=== PATIENT | female | born 1995 | race Caucasian/White ===

== ENCOUNTER → 2017-04-11 08:06 | Outpatient (CLI) | payer BC, SELFPAY ==
--- NOTE | 2017-04-11 08:14 | US_ITS ---
US abdomen limited: INDICATION: Elevated liver enzymes ITS.REASON: ELEVATED ALAMINE AMINOTRANSFERASE LEVEL ORDERING PHYSICIAN: Zenaida Costa PATIENT AGE: 21 years COMPARISON: 05/08/2015 FINDINGS: PANCREAS: Poorly demonstrated. No obvious pancreatic mass or ductal dilatation. LIVER: No focal liver lesions demonstrated. Homogeneous echogenicity. No intrahepatic biliary ductal dilatation evident. Appropriate direction of blood flow within a nondilated portal vein RIGHT KIDNEY: Unremarkable. Normal size and echogenicity. No hydronephrosis GALLBLADDER: Status post cholecystectomy. No ductal dilatation IMPRESSION: Prior cholecystectomy otherwise negative right upper quadrant ultrasound
== END ==
PROVIDERS: Family Provider Family Medicine; PCP Nurse Practitioner Family; Visit Provider Nurse Practitioner Family
DX: R74.0 Nonspecific elevation of levels of transaminase and lactic acid dehydrogenase [LDH] (principal)
CPT/HCPCS: 76705

== ENCOUNTER → 2017-10-28 14:37 | Outpatient (CLI) | payer OTHER, BC, SELFPAY ==
[2017-10-28 19:04] LABS: HCG,Quantitative 323 mIU/mL
== END ==
PROVIDERS: PCP Nurse Practitioner Family; Visit Provider Nurse Practitioner Family
DX: Z3A.01 Less than 8 weeks gestation of pregnancy (principal)
CPT/HCPCS: 36415; 84702

== ENCOUNTER → 2017-12-05 16:26 | Outpatient (CLI) | payer OTHER, BC, SELFPAY ==
[2017-12-09 06:30] LABS: Neisseria gonorrhoeae, NAA Negative (Negative)
== END ==
PROVIDERS: Visit Provider Obstetrics & Gynecology
DX: Z34.90 Encounter for supervision of normal pregnancy, unspecified, unspecified trimester (principal)
CPT/HCPCS: 87491; 87591

== ENCOUNTER → 2017-12-15 07:15 | Outpatient (CLI) | payer OTHER, BC, SELFPAY ==
[2017-12-15 08:16] LABS: Basophils % 0.3 % (0.1-2.0); Eosinophils # 0.1 K/mm3 (0.0-0.4); Eosinophils % 0.8 % (0.1-12.0); Hemoglobin 13.5 g/dL (12.2-16.2); Lymphocytes # 2.5 K/mm3 (0.7-4.5); Mean Corpuscular HGB Conc 32.1 g/dL (31.8-35.4); Mean Corpuscular Hemoglobin 28.2 pg (27.0-31.2); Mean Corpuscular Volume 87.9 fl (81-99); Mean Platelet Volume 8.6 fl (7.4-10.4); Monocytes # 0.3 K/mm3 (0.1-1.0); Monocytes % 3.5 % (1.7-9.3); Neutrophils # 5.2 K/mm3 (1.8-7.8); Neutrophils % 64.4 % (37.0-80.0); Platelet Count 268 K/mm3 (142-424); Red Blood Count 4.78 M/mm3 (4.20-5.40); Red Cell Distribution Width 13.1 % (11.5-17.5); White Blood Count 8.1 K/mm3 (4.5-13.0)
[2017-12-16 08:34] LABS: HIV Screen 4th Generation wRfx Non Reactive (Non Reactive)
[2017-12-17 12:36] LABS: Hepatitis B Surface Antigen Negative (Negative); Hepatitis C Antibody <0.1 s/co ratio (0.0-0.9); Rapid Plasma Reagin Ab Titer Non Reactive (NonRea<1:1); Rubella Antibodies, IgG <0.90 index (Immune >0.99)
== END ==
PROVIDERS: Visit Provider Obstetrics & Gynecology
DX: Z34.90 Encounter for supervision of normal pregnancy, unspecified, unspecified trimester (principal)
CPT/HCPCS: 36415; 85025; 86592; 86703; 86762; 86850; 87340; 87380; G0432

== ENCOUNTER → 2018-02-12 12:18 | Outpatient (CLI) | payer BC, SELFPAY ==
--- NOTE | 2018-02-12 12:23 | US_ITS ---
US OB /maternal detail: INDICATION: ITS.REASON: Anatomical survey ORDERING PHYSICIAN: Mallory Diaz MD PATIENT AGE: 22 years TECHNIQUE: ultrasound transabdominal scanning. COMPARISON: No previous relevant studies. FINDINGS: Single viable intrauterine gestation. Breech position. Placenta: Posterior placenta grade 1. There is average amount fluid. The cervix appears satisfactory. Closed and measuring 4 cm in length. Study is technically difficult. Complete survey performed and was unremarkable on the submitted images as in PACS. No discrete anomalies identified on survey imaging by technologist. Active fetus. Three-vessel cord with satisfactory umbilical cord insertion. 4- chamber heart noted. Survey of brain & ventricles unremarkable. Face and neck survey unremarkable. Diaphragm and chest views unremarkable. Abdomen: Both kidneys noted and unremarkable. Stomach noted and satisfactory. Spine: Survey of the spine satisfactory with no anomalies identified nor imaged. Both arms and legs noted. Amniotic Fluid: Adequate. Maternal adnexa: No significant findings. Measurements: Average ultrasound age 20w1d. Gestational Age 20w1d. Estimated due date by ultrasound age 0507/01/2018. Estimated weight 337 grams. BPD = 20w1d OFD = 20w4d HC = 19w5d AC = 20w3d FL = 20w2d Growth Percentile= 47% Heart Rate = 155 Cerebellum = 20w2d Humerus = 20w1d HC/AC is 1.13 (1.09-1.26). CI is 77% (70-86%). FL/BPD is 70%. FL/AC is 22%. IMPRESSION: There is a single live fetus present which is in breech presentation. Average ultrasound age is 20 weeks and 1 day. All parameters correlate with no obvious anomalies. Please see above for details.
== END ==
PROVIDERS: PCP Nurse Practitioner Family; Visit Provider Obstetrics & Gynecology
DX: O10.919 Unspecified pre-existing hypertension complicating pregnancy, unspecified trimester (principal)
CPT/HCPCS: 76811

== ENCOUNTER → 2018-03-10 08:47 | Outpatient (CLI) | payer BC, SELFPAY ==
[2018-03-10 09:28] LABS: Creatinine,Urine Random 107 mg/dL (20-320); Patient Height,Urine 62 inches; Patient Weight,Urine 268 lbs
[2018-03-10 10:10] LABS: Creatinine,Serum 0.59 mg/dL (0.55-1.02)
[2018-03-10 10:28] LABS: Collection Time,Urine 24 hours; Creatinine 24 Hour,Urine 1391 mg/24hr (630-2500); Creatinine Clearance Urine 131.3 mL/min (25-115); Total Protein 24 Hour,Urine 182 mg/24 hr (40-90); Total Volume,Urine 1300 mL (600-1600)
== END ==
PROVIDERS: Visit Provider Obstetrics & Gynecology
DX: Z34.90 Encounter for supervision of normal pregnancy, unspecified, unspecified trimester (principal)
CPT/HCPCS: 36415; 82575; 84155

== ENCOUNTER → 2018-03-27 08:13 | Outpatient (CLI) | payer BC, SELFPAY ==
[2018-03-27 08:48] LABS: Glucose,Fasting 90 mg/dL (60-105)
[2018-03-27 10:13] LABS: Glucose 1 Hour 102 mg/dL (74-106)
== END ==
PROVIDERS: Visit Provider Obstetrics & Gynecology
DX: Z34.90 Encounter for supervision of normal pregnancy, unspecified, unspecified trimester (principal)
CPT/HCPCS: 36415; 82951

== ENCOUNTER 2018-05-10 18:29 | Observation (INO) ==
[2018-05-10 18:53] LABS: Microscopic, Urine URINE MICROSCOPIC (MICROSCOPIC)
[2018-05-10 19:07] LABS: Appearance,Urine CLOUDY (Clear); Bilirubin,Urine Negative (Negative); Blood, Urine Negative (Negative); Color,Urine YELLOW (Yellow); Glucose,Urine (UA) Negative (Negative); Ketones,Urine Negative (Negative); Leukocyte Esterase,Urine TRACE (Negative); Protein,Urine Negative (Negative); Specific Gravity, Urine 1.015 (1.005-1.030); Urobilinogen,Urine 0.2 EU/dl (0.2)
[2018-05-10 19:09] LABS: Bacteria,Urine Trace /lpf; Squamous Epithelial Cell,Urine 50-100 #/hpf (0-5); WBC,Urine Occasional #/hpf (0-3)
[2018-05-10 20:33] LABS: Basophils % 0.2 % (0.1-2.0); Eosinophils # 0.1 K/mm3 (0.0-0.4); Eosinophils % 0.5 % (0.1-12.0); Hematocrit 40.4 % (37.0-47.0); Hemoglobin 13.3 g/dL (12.2-16.2); Lymphocytes % 21.4 % (10-50); Mean Corpuscular HGB Conc 32.9 g/dL (31.8-35.4); Mean Corpuscular Volume 85.1 fl (81-99); Mean Platelet Volume 8.7 fl (7.4-10.4); Monocytes # 0.7 K/mm3 (0.1-1.0); Monocytes % 5.3 % (1.7-9.3); Neutrophils # 10.1 K/mm3 (1.8-7.8); Neutrophils % 72.5 % (37.0-80.0); Platelet Count 290 K/mm3 (142-424); Red Blood Count 4.74 M/mm3 (4.20-5.40); Red Cell Distribution Width 13.9 % (11.5-17.5)
[2018-05-10 20:42] LABS: Activated Partial Thrombo Time 25.2 seconds (23.6-34.0); INR 0.87 (0.9-1.1)
[2018-05-10 20:44] LABS: Anion Gap 15.8 mEq/L (5-15); Potassium 3.8 mmoL/L (3.5-5.1); Uric Acid 3.9 mg/dL (2.6-7.2)
[2018-05-11 06:50] VITALS: BP 108/51
--- NOTE | 2018-05-11 13:39 | History & Physical Report ---
OB - H&P: HPI Antepartum - History of Present Illness Chief complaint: elevated blood pressure History of present illness: 22 yo G1 @ 33 wks presented to triage for evaluation of elevated bp at home Patient was taken off work 1-2 wks ago for new onset hypertension during and has been monitoring bp at home BID since that time BP has mostly ranged 130's/80's with a few mild elevations 140's/90's but had not been started on medication yet On 05/10, patient had 2 blood pressure readings in severe range 150-160/100 and came to triage for evaluation. BP in triage was also in severe range, with no protein in urine. PIH labs were normal and she was admitted for observation and to begin anti-hypertensive medication. She is started on labetalol 100mg BID and will monitor bp during observation period to assess any need for modification of this medication dosage. status with NST has been reassuring. [facility] History I have reviewed the patient's past medical history: Yes *Have you ever received a pneumonia vaccine?: No *Have you received a flu vaccine this season?: No Other Surgeries: No: Amputation: No Fractures: No - *Social History Smoking Status: Never smoker Alcohol Intake: never Substance Use Type: denies use *Occupational Status:: employed Family Hx:: No significant family history WASH OPERATOR history: No WASH OPERATOR history : 1 Para: 0 Review of Systems - Review of Systems CONSTITUTIONAL: no fever/chills HEENT: no oral lesions PULMONARY: no shortness of breath or difficulty breathing CV: no racing heart, palpitations or chest pain ABD: no abdominal pain, N/V : no contractions, LOF or VB SKIN: no new rash or skin lesions EXT: no edema NEURO: no MUSTAFA or visual changes PSYCH: no current anxiety/depression OB: normal movement Meds Home Medications Medication Instructions Recorded Confirmed Type 1 tab PO DAILY 12/05/17 05/11/18 History vitamin,calcium,kskskfjo-fzbd-hmgfd acid tablet Allergies Allergy/AdvReac Type Severity Reaction Status Date / Time amoxicillin [From AUGMENTIN] Allergy Mild RASH, N/V Verified 04/30/18 08:50 clavulanic acid Allergy Mild RASH,N/V Verified 04/30/18 08:50 [From AUGMENTIN] penicillin G [PENICILLIN G] Allergy Mild RASH,N/V Verified 04/30/18 08:50 clindamycin [CLINDAMYCIN] Allergy Unknown RASH, N/V Verified 04/30/18 08:50 OB - H&P: Exam - Physical Exam Vital signs: Temp Pulse Resp BP Pulse Ox 97.8 F 83 18 108/51 L 98 05/11/18 04:47 05/11/18 04:47 05/11/18 04:47 05/11/18 04:47 05/10/18 19:09 Narrative: CONSTITUTIONAL: no acute distress HEENT: mucous membranes moist PULMONARY: breathing unlabored without audible wheezes CV: no tachycardia or visible JVD; normal LE peripheral pulses ABD: soft, NT/ND, no guarding. Gravid uterus. : cervix closed SKIN: no visible rash or lesions HEME: no lymphadenopathy EXT: trace edema LEs NEURO: alert/oriented, no altered mental status PSYCH: appropriate mood and demeanor without anxiety/depression NST: Basline: 140 Variability: moderate Accelerations: yes Decelerations: no Impression: Reactive, Category 1 OB - Results - Labs Labs: Short CBC 05/10/18 Range/Units 20:23 WBC 14.0 H (4.8-10.8) K/mm3 Hgb 13.3 (12.2-16.2) g/dL Hct 40.4 (37.0-47.0) % Plt Count 290 (142-424) K/mm3 BMP 05/10/18 20:23 Sodium 138 Potassium 3.8 Chloride 103 Carbon Dioxide 23 BUN 6 L Creatinine 0.66 Glucose 93 Calcium 9.0 Liver Function 05/10/18 Range/Units 20:23 AST 10 L (15-37) U/L ALT 21 (12-78) U/L Urine 05/10/18 Range/Units 18:45 Urine Color Yellow (Yellow) Urine Appearance Cloudy (Clear) Urine pH 7.0 (5.0-8.5) Ur Specific [place] 1.015 (1.005-1.030) Urine Protein Negative (Negative) Urine Glucose (UA) Negative (Negative) OB - A/P Antepartum (1) Chronic hypertension affecting Problem details: No meds currently Current visit: No Status: Acute (2) Obesity affecting Problem details: BMI 50 Current visit: No Status: Acute - Additional Plan Additional Information:: Admission for 23 hr observation PIH w/u negative Start labetalol 100mg po BID and adjust as needed NST twice daily Ultrasound for growth, IRAM, BPP and UA dopplers already scheduled for later this week as outpatient
--- NOTE | 2018-05-11 13:48 | Discharge Summary ---
General - General Admission date:: 05/10/18 Discharge date: 05/11/18 HPI HPI: 22 yo G1 at 33 wks admitted for observation and monitoring of BP, with need to start anti-hypertensive therapy Started on labetalol 100mg po BID, with appropriate decrease in BP from 164/97 to 112/73, 115/66, 109/52 PIH w/u negative with serum labs, and scheduled to complete 24 hr urine for total protein and creatinine clearance later this week Ultrasound scheduled as outpatient for later this week for growth, IRAM, BPP and UA dopplers NST reactive & reassuring with category 1 tracing each day of hospitalization Discharged home on HD #2 to continue labetalol 100mg po BID and f/u with care as previously scheduled for this week She will continue on bedrest and continue monitoring BP at home Hospital Course Hospital Course: as per HPI Objective Vital signs: Temp Pulse Resp BP Pulse Ox 97.8 F 83 18 108/51 L 98 05/11/18 04:47 05/11/18 04:47 05/11/18 04:47 05/11/18 04:47 05/10/18 19:09 Narrative: CONSTITUTIONAL: no acute distress HEENT: mucous membranes moist PULMONARY: breathing unlabored without audible wheezes CV: no tachycardia or visible JVD; normal LE peripheral pulses ABD: soft, NT/ND, no guarding SKIN: no visible rash or lesions EXT: trace edema LEs NEURO: alert/oriented, no altered mental status PSYCH: appropriate mood and demeanor without anxiety/depression Results Labs on day of discharge: Labs from last 24 hours 05/10/18 05/10/18 05/10/18 20:23 20:23 20:23 WBC 14.0 H RBC 4.74 Hgb 13.3 Hct 40.4 MCV 85.1 MCH 28.0 MCHC 32.9 RDW 13.9 Plt Count 290 MPV 8.7 Neut % (Auto) 72.5 Lymph % (Auto) 21.4 [place] % (Auto) 5.3 Eos % (Auto) 0.5 Baso % (Auto) 0.2 Neut # (Auto) 10.1 H Lymph # (Auto) 3.0 [place] # (Auto) 0.7 Eos # (Auto) 0.1 Baso # (Auto) 0.0 PT 9.0 L INR 0.87 L APTT 25.2 Fibrinogen 442 D-Dimer 212 Sodium 138 Potassium 3.8 Chloride 103 Carbon Dioxide 23 Anion Gap 15.8 H BUN 6 L Creatinine 0.66 Estimated Creat Clear 107 Estimated GFR 113 Est GFR ( Amer) 137 Glucose 93 Uric Acid 3.9 Calcium 9.0 AST 10 L ALT 21 Urine Color Urine Appearance Urine pH Ur Specific [place] Urine Protein Urine Glucose (UA) Urine Ketones Urine Blood Urine Nitrate Urine Bilirubin Urine Urobilinogen Ur Leukocyte Esterase Urine WBC Ur Squamous Epith Cells Urine Bacteria 05/10/18 18:45 WBC RBC Hgb Hct MCV MCH MCHC RDW Plt Count MPV Neut % (Auto) Lymph % (Auto) [place] % (Auto) Eos % (Auto) Baso % (Auto) Neut # (Auto) Lymph # (Auto) [place] # (Auto) Eos # (Auto) Baso # (Auto) PT INR APTT Fibrinogen D-Dimer Sodium Potassium Chloride Carbon Dioxide Anion Gap BUN Creatinine Estimated Creat Clear Estimated GFR Est GFR ( Amer) Glucose Uric Acid Calcium AST ALT Urine Color Yellow Urine Appearance Cloudy Urine pH 7.0 Ur Specific [place] 1.015 Urine Protein Negative Urine Glucose (UA) Negative Urine Ketones Negative Urine Blood Negative Urine Nitrate Negative Urine Bilirubin Negative Urine Urobilinogen 0.2 Ur Leukocyte Esterase Trace Urine WBC Occasional Ur Squamous Epith Cells 50-100 Urine Bacteria Trace DS: Diagnosis - Discharge Diagnosis (1) Chronic hypertension affecting Status: Acute Problem details: No meds currently (2) Obesity affecting Status: Acute Problem details: BMI 50 Discharge Plan - Patient Discharge Instructions ACTIVITY: Bed rest DIET: regular diet Patient Instructions: Pre-eclampsia and -induced Hypertension (Alternative Therapy) - Follow up Plan Disposition: Home, Self-Retirement Medications: Home Medications Medication Instructions Recorded Confirmed Type 1 tab PO DAILY 12/05/17 05/11/18 History vitamin,calcium,fvxnugqs-dymv-tawdf acid tablet Labetalol HCl [Normodyne 100mg 100 mg PO BID #60 tablet 05/11/18 Rx tablet] Prescriptions/Medication Reconciliation: New Labetalol HCl [Normodyne 100mg tablet] 100 mg PO BID #60 tablet Continue vitamin,calcium,gsjptmuw-juma-gealo acid tablet 1 tab PO DAILY
== END 2018-05-11 14:15 | disposition home or self-care (01) ==
LOC: OB 18:29 → OBOUT 18:29 → OB 18:33
PROVIDERS: ADMIT Obstetrics & Gynecology; ATTEND Obstetrics & Gynecology
CPT/HCPCS: 59025; 80048; 81001; 84450; 84460; 84550; 85025; 85378; 85384; 85610; 85730; G0378

== ENCOUNTER → 2018-05-12 09:44 | Outpatient (CLI) | payer BC, SELFPAY ==
--- NOTE | 2018-05-12 09:48 | US_ITS ---
US US OB BPP w/Fet-Mat S/D: INDICATION: PIH ITS.REASON: US OB BPP Growth, S/D Ratio- PIH ORDERING PHYSICIAN: Mallory Diaz MD PATIENT AGE: 22 years TECHNIQUE: ultrasound transabdominal scanning.MW COMPARISON: No previous relevant studies. FINDINGS: Single viable intrauterine gestation. Cephalic position Currently. Placenta: Posterior placenta grade 2.. Developing basal calcifications throughout There is average amount fluid. Cervix Closed and measuring 2.9 cm in length. Limited survey performed and was unremarkable on the submitted images as in PACS. No discrete anomalies identified on survey imaging by technologist. Active fetus.Three-vessel cord with satisfactory umbilical cord insertion. Images brain & ventricles & posterior fossa unremarkable Limited images Face and neck survey unremarkable.. Diaphragm and chest views unremarkable. 4- chamber heart imaged. Cine loop included. LVOT imaged Abdomen: Both kidneys noted and unremarkable. Stomach noted and satisfactory.. Both arms and legs noted. Appears to be a male fetus. Maternal adnexa: No significant findings encountered. Measurements: Average ultrasound age 32 week 4 day. Gestational Age 32 weeks 6 day based on an AP 09/24/2017. Estimated due date by ultrasound age 507/03/2018. Estimated weight 1851 grams. +/- 2 70 g BPD = 33 week 2 day OFD = 35 week 5 day HC = 34 week 1 day AC = 32 week 0 day FL = 30 week 4 day Heart Rate = 144 BPM HC/AC = 1.1. WNL CI = 75%.(70-86%). FL/BPD is 71%. FL/AC is 21% Growth Percentile 15%. ==== BIOPHYSICAL PROFILE = 8 of possible 8 points. 2+ scored for each category. tone, breathing, movement, fluid. IRAM = 10.2. Centimeter. Largest pocket measures 4.18 cm at LLQ SD RATIO = 1.9 . Resistive index = 0.48 IMPRESSION: 32 week 4 days average ultrasound age . Cephalic presentation. ... Posterior placenta grade 2 . Active fetus.\ Biophysical profile 8 of possible 8 points. Limited anatomical survey today was unremarkable. SD ratio 1.9. IRAM = = 10.2 .
== END ==
PROVIDERS: PCP Nurse Practitioner Family; Visit Provider Obstetrics & Gynecology
DX: O13.9 Gestational [pregnancy-induced] hypertension without significant proteinuria, unspecified trimester (principal); Z3A.32 32 weeks gestation of pregnancy
CPT/HCPCS: 76811; 76819; 76820

== ENCOUNTER → 2018-05-14 10:00 | Outpatient (CLI) | payer BC, SELFPAY ==
[2018-05-14 10:54] LABS: Basophils % 0.2 % (0.1-2.0); Eosinophils % 0.3 % (0.1-12.0); Hematocrit 38.4 % (37.0-47.0); Hemoglobin 12.8 g/dL (12.2-16.2); Lymphocytes # 2.7 K/mm3 (0.7-4.5); Lymphocytes % 24.2 % (10-50); Mean Corpuscular HGB Conc 33.3 g/dL (31.8-35.4); Mean Corpuscular Hemoglobin 28.6 pg (27.0-31.2); Mean Corpuscular Volume 85.8 fl (81-99); Mean Platelet Volume 8.8 fl (7.4-10.4); Monocytes # 0.5 K/mm3 (0.1-1.0); Monocytes % 4.6 % (1.7-9.3); Neutrophils # 7.9 K/mm3 (1.8-7.8); Neutrophils % 70.7 % (37.0-80.0); Platelet Count 290 K/mm3 (142-424); Red Blood Count 4.48 M/mm3 (4.20-5.40); Red Cell Distribution Width 13.7 % (11.5-17.5); White Blood Count 11.1 K/mm3 (4.8-10.8)
[2018-05-14 12:10] LABS: Alanine Aminotransferase 21 U/L (12-78); Albumin Level 2.7 gm/dL (3.4-5.0); Albumin/Globulin Ratio 0.7 (1.1-1.8); Alkaline Phosphatase 142 U/L (46-116); Anion Gap 16.1 mEq/L (5-15); Aspartate Amino Transferase 14 U/L (15-37); Bilirubin,Total 0.2 mg/dL (0.2-1.0); Blood Urea Nitrogen 6 mg/dL (7-18); Calcium 9.1 mg/dL (8.5-10.1); Carbon Dioxide 24 mmol/L (21.0-32.0); Chloride 103 mmol/L (98-107); Creatinine,Serum 0.64 mg/dL (0.55-1.02); Estimated Glomerular Filt Rate 117 ml/min (>60); GFR (African American) 142 ML/MIN (>60); Globulin 3.7 gm/dl (1.3-3.2); Glucose 82 mg/dL (74-106); Potassium 4.1 mmoL/L (3.5-5.1); Sodium 139 mmol/L (136-145); Total Protein,Serum 6.4 gm/dL (6.4-8.2); Uric Acid 4.5 mg/dL (2.6-7.2)
[2018-05-14 20:48] LABS: Total Protein,Urine Random 16.3 mg/dL (0.0-11.9)
[2018-05-14 20:54] LABS: Total Protein 24 Hour,Urine 334 mg/24 hr (40-90); Total Volume,Urine 2050 mL (600-1600)
[2018-05-18 20:09] LABS: AFP Value 156.4 ng/mL (.); DIA MoM 5.02 (.); DSR (Second Trimester) 1 IN 1864 (.); Gestat. Age Based On As provided (.); Maternal Age At EDD 21.8 yr (.); OSBR Risk 1 IN 10 (.); Results Report (.); hCG MoM 0.53 (.); uE3 MoM 8.77 (.); uE3 Value 4.24 ng/mL (.)
== END ==
PROVIDERS: PCP Nurse Practitioner Family; Visit Provider Obstetrics & Gynecology
DX: O10.919 Unspecified pre-existing hypertension complicating pregnancy, unspecified trimester (principal); Z34.90 Encounter for supervision of normal pregnancy, unspecified, unspecified trimester
CPT/HCPCS: 36415; 80053; 82106; 84155; 84550; 85025

== ENCOUNTER 2018-05-25 12:32 | Outpatient (CLI) | payer BC, SELFPAY ==
[2018-05-25] VITALS (9 sets, daily range): BP systolic 123–166; BP diastolic 72–89; PULSE 137; RESP 20; TEMP 36.6; O2SAT 98; BMI 54.1; BMI 54.3
--- NOTE | 2018-05-25 12:35 | US_ITS ---
US OB biophysical profile: Indication: ITS.REASON: US OB BPP IRAM- Pre-eclampsia ORDERING PHYSICIAN: Mallory Diaz MD PATIENT AGE: 22 years FINDINGS: There is a single live fetus which is in cephalic presentation. Cervix appears closed and measures 3.2 cm. heart rate is 1 29 bpm measurements are not performed. Amniotic fluid index: 16 cm Qualitative AFV: 2 breathing movements: 2 Gross body movements: 2 Tone: 2 Biophysical profile score: 8/8 The placenta is posterior and fundal and is grade 3 IMPRESSION: Single live fetus which is in cephalic presentation. heart tones are present. Measurements were not obtained. Biophysical profile is 8 of 8 with amniotic fluid index of 16 cm. Placenta is posterior and fundal and grade 3.
[2018-05-25 15:19] LABS: Microscopic, Urine URINE MICROSCOPIC (MICROSCOPIC)
[2018-05-25 15:29] LABS: Appearance,Urine CLOUDY (Clear); Bilirubin,Urine Negative (Negative); Blood, Urine Negative (Negative); Color,Urine YELLOW (Yellow); Glucose,Urine (UA) Negative (Negative); Ketones,Urine Negative (Negative); Leukocyte Esterase,Urine TRACE (Negative); Nitrate,Urine Negative (Negative); Protein,Urine TRACE (Negative); Specific Gravity, Urine 1.015 (1.005-1.030); Urobilinogen,Urine 0.2 EU/dl (0.2)
[2018-05-25 15:37] LABS: Amphetamine/Metha Screen,Urine Negative ng/mL (<1000); Barbiturates Screen,Urine Negative ng/mL (<200); Benzodiazepines Screen,Urine Negative ng/mL (<200); Cannabinoid Screen,Urine Negative ng/mL (<50); Cocaine Screen,Urine Negative ng/mL (<300); Methadone Screen,Urine Negative ng/mL (<300); Opiate Screen,Urine Negative ng/mL (<300); Phencyclidine Screen,Urine Negative ng/mL (<25)
[2018-05-25 15:39] LABS: Bacteria,Urine 4+ /lpf
[2018-05-25 17:43] LABS: Basophils % 0.2 % (0.1-2.0); Eosinophils # 0.1 K/mm3 (0.0-0.4); Eosinophils % 0.4 % (0.1-12.0); Hematocrit 38.2 % (37.0-47.0); Hemoglobin 12.8 g/dL (12.2-16.2); Lymphocytes # 2.4 K/mm3 (0.7-4.5); Lymphocytes % 19.3 % (10-50); Mean Corpuscular HGB Conc 33.5 g/dL (31.8-35.4); Mean Corpuscular Hemoglobin 28.4 pg (27.0-31.2); Mean Corpuscular Volume 84.8 fl (81-99); Mean Platelet Volume 9.1 fl (7.4-10.4); Monocytes # 0.8 K/mm3 (0.1-1.0); Neutrophils # 9.3 K/mm3 (1.8-7.8); Neutrophils % 74.1 % (37.0-80.0); Platelet Count 255 K/mm3 (142-424); Red Blood Count 4.51 M/mm3 (4.20-5.40); Red Cell Distribution Width 13.5 % (11.5-17.5); White Blood Count 12.5 K/mm3 (4.8-10.8)
[2018-05-25 17:46] LABS: Activated Partial Thrombo Time 24.2 seconds (23.6-34.0); Fibrinogen 397 mg/dL (204-500); INR 0.88 (0.9-1.1); Prothrombin Time 9.1 seconds (9.4-11.8)
[2018-05-25 17:47] LABS: Alanine Aminotransferase 23 U/L (12-78); Anion Gap 14.6 mEq/L (5-15); Aspartate Amino Transferase 9 U/L (15-37); Blood Urea Nitrogen 9 mg/dL (7-18); Calcium 9.2 mg/dL (8.5-10.1); Carbon Dioxide 24 mmol/L (21.0-32.0); Chloride 104 mmol/L (98-107); Creatinine Clearance Estimated 104 mL/min (50-200); Creatinine,Serum 0.68 mg/dL (0.55-1.02); Estimated Glomerular Filt Rate 109 ml/min (>60); GFR (African American) 132 ML/MIN (>60); Glucose 113 mg/dL (74-106); Potassium 3.6 mmoL/L (3.5-5.1); Sodium 139 mmol/L (136-145); Uric Acid 5.5 mg/dL (2.6-7.2)
[2018-05-25 17:57] LABS: D-Dimer 304 ng/mL (0-400)
== END 2018-05-25 18:35 | disposition home or self-care (01) ==
LOC: RAD 14:45 → OB 14:46
PROVIDERS: Nurse Practitioner Obstetrics & Gynecology; PCP Nurse Practitioner Family; Visit Provider Obstetrics & Gynecology
DX: O14.90 Unspecified pre-eclampsia, unspecified trimester (principal)
CPT/HCPCS: 36415; 59025; 76819; 80048; 80305; 81001; 84450; 84460; 84550; 85025; 85378; 85384; 85610; 85730; 87086

== ENCOUNTER → 2018-05-27 10:01 | Outpatient (CLI) | payer BC, SELFPAY ==
[2018-05-27 10:41] LABS: Creatinine,Urine Random 62 mg/dL (20-320); Total Protein,Urine Random 20.6 mg/dL (0.0-11.9)
[2018-05-27 10:57] LABS: Basophils % 0.4 % (0.1-2.0); Eosinophils % 0.3 % (0.1-12.0); Hematocrit 38.9 % (37.0-47.0); Hemoglobin 12.9 g/dL (12.2-16.2); Lymphocytes # 2.7 K/mm3 (0.7-4.5); Lymphocytes % 22.5 % (10-50); Mean Corpuscular HGB Conc 33.2 g/dL (31.8-35.4); Mean Corpuscular Hemoglobin 28.1 pg (27.0-31.2); Mean Corpuscular Volume 84.8 fl (81-99); Mean Platelet Volume 9.1 fl (7.4-10.4); Monocytes # 0.6 K/mm3 (0.1-1.0); Monocytes % 5.3 % (1.7-9.3); Neutrophils # 8.6 K/mm3 (1.8-7.8); Neutrophils % 71.5 % (37.0-80.0); Platelet Count 288 K/mm3 (142-424); Red Blood Count 4.58 M/mm3 (4.20-5.40); Red Cell Distribution Width 13.6 % (11.5-17.5); White Blood Count 12.1 K/mm3 (4.8-10.8)
[2018-05-27 12:59] LABS: Alanine Aminotransferase 23 U/L (12-78); Albumin Level 2.5 gm/dL (3.4-5.0); Albumin/Globulin Ratio 0.7 (1.1-1.8); Alkaline Phosphatase 140 U/L (46-116); Anion Gap 16.3 mEq/L (5-15); Aspartate Amino Transferase 10 U/L (15-37); Bilirubin,Total 0.2 mg/dL (0.2-1.0); Blood Urea Nitrogen 9 mg/dL (7-18); Calcium 9.2 mg/dL (8.5-10.1); Carbon Dioxide 22 mmol/L (21.0-32.0); Chloride 105 mmol/L (98-107); Creatinine,Serum 0.66 mg/dL (0.55-1.02); Estimated Glomerular Filt Rate 113 ml/min (>60); GFR (African American) 137 ML/MIN (>60); Globulin 3.5 gm/dl (1.3-3.2); Glucose 85 mg/dL (74-106); Potassium 4.3 mmoL/L (3.5-5.1); Sodium 139 mmol/L (136-145); Uric Acid 5.6 mg/dL (2.6-7.2)
[2018-05-27 13:28] LABS: Collection Time,Urine 800 hours
[2018-05-27 13:29] LABS: Creatinine 24 Hour,Urine 1705 mg/24hr (630-2500); Total Protein 24 Hour,Urine 567 mg/24 hr (40-90); Total Volume,Urine 2750 mL (600-1600)
[2018-05-27 13:32] LABS: Creatinine Clearance Urine 5.4 mL/min (25-115)
== END ==
PROVIDERS: Visit Provider Obstetrics & Gynecology
DX: Z36.89 Encounter for other specified antenatal screening (principal); O13.9 Gestational [pregnancy-induced] hypertension without significant proteinuria, unspecified trimester
CPT/HCPCS: 36415; 80053; 82575; 84155; 84550; 85025

== ENCOUNTER 2018-05-28 11:46 | Outpatient (CLI) | payer BC, SELFPAY ==
[2018-05-28 11:56] VITALS: BP 123/79; PULSE 96; RESP 19; TEMP 36.7; O2SAT 100; BMI 53.7; BMI 53.9
== END 2018-05-28 13:00 | disposition home or self-care (01) ==
LOC: OBOUT 11:47 → OB 11:48
PROVIDERS: PCP Nurse Practitioner Family; Visit Provider Obstetrics & Gynecology
DX: O13.3 Gestational [pregnancy-induced] hypertension without significant proteinuria, third trimester (principal); Z3A.35 35 weeks gestation of pregnancy
CPT/HCPCS: 59025; 86403

== ENCOUNTER 2018-06-01 10:14 | Outpatient (CLI) | payer BC, SELFPAY ==
--- NOTE | 2018-06-01 10:15 | US_ITS ---
US OB biophysical profile: Indication: ITS.REASON: US OB BPP IRAM- Pre-eclampsia ORDERING PHYSICIAN: Mallory Diaz MD PATIENT AGE: 22 years FINDINGS: There is a single live fetus in cephalic presentation. breathing and movement noted. Transabdominal imaging shows the cervix to measure 3.2 cm and appears closed. Amniotic fluid index: 16 cm Qualitative AFV: 2 breathing movements: 2 Gross body movements: 2 Tone: 2 Biophysical profile score: 8/8 Doppler evaluation of the umbilical artery: SD ratio: 1.6 Resistive index: 0.38 Placenta: Posterior and grade 3 Cervix: Appears closed and measures 3.2 cm IMPRESSION: Single active fetus in cephalic presentation. breathing movement noted Biophysical profile 8 of 8 with normal amniotic fluid volume of 16 cm. Unremarkable Doppler evaluation of the umbilical artery. Posterior grade 3 placenta
[2018-06-01 10:56] VITALS: BMI 55.0
[2018-06-01 11:09] LABS: Microscopic, Urine URINE MICROSCOPIC (MICROSCOPIC)
[2018-06-01 11:14] VITALS: BP 134/90; PULSE 83; RESP 18; TEMP 37.2; O2SAT 97; BMI 55.0
[2018-06-01 11:21] LABS: Appearance,Urine CLEAR (Clear); Bilirubin,Urine Negative (Negative); Blood, Urine Negative (Negative); Color,Urine YELLOW (Yellow); Glucose,Urine (UA) Negative (Negative); Ketones,Urine Negative (Negative); Leukocyte Esterase,Urine Negative (Negative); Nitrate,Urine Negative (Negative); Protein,Urine TRACE (Negative); Specific Gravity, Urine 1.025 (1.005-1.030); Urobilinogen,Urine 0.2 EU/dl (0.2)
[2018-06-01 11:32] LABS: Amphetamine/Metha Screen,Urine Negative ng/mL (<1000); Barbiturates Screen,Urine Negative ng/mL (<200); Benzodiazepines Screen,Urine Negative ng/mL (<200); Cannabinoid Screen,Urine Negative ng/mL (<50); Cocaine Screen,Urine Negative ng/mL (<300); Methadone Screen,Urine Negative ng/mL (<300); Opiate Screen,Urine Negative ng/mL (<300); Phencyclidine Screen,Urine Negative ng/mL (<25)
[2018-06-01 11:44] LABS: Bacteria,Urine Trace /lpf; Squamous Epithelial Cell,Urine Occasional #/hpf (0-5)
== END 2018-06-01 11:54 | disposition home or self-care (01) ==
LOC: RAD 10:14 → OB 10:50
PROVIDERS: PCP Nurse Practitioner Family; Visit Provider Obstetrics & Gynecology
DX: O14.90 Unspecified pre-eclampsia, unspecified trimester (principal)
CPT/HCPCS: 59025; 76819; 80305; 81001

== ENCOUNTER 2018-06-01 18:02 | Inpatient (IN) ==
[2018-06-01 20:07] LABS: Basophils % 0.2 % (0.1-2.0); Eosinophils % 0.3 % (0.1-12.0); Hematocrit 38.2 % (37.0-47.0); Hemoglobin 12.5 g/dL (12.2-16.2); Lymphocytes # 2.6 K/mm3 (0.7-4.5); Lymphocytes % 19.7 % (10-50); Mean Corpuscular HGB Conc 32.8 g/dL (31.8-35.4); Mean Corpuscular Hemoglobin 27.9 pg (27.0-31.2); Mean Platelet Volume 8.7 fl (7.4-10.4); Monocytes # 0.8 K/mm3 (0.1-1.0); Neutrophils # 9.7 K/mm3 (1.8-7.8); Neutrophils % 73.9 % (37.0-80.0); Platelet Count 279 K/mm3 (142-424); Red Cell Distribution Width 13.6 % (11.5-17.5); White Blood Count 13.2 K/mm3 (4.8-10.8)
[2018-06-01 20:22] LABS: Activated Partial Thrombo Time 23.6 seconds (23.6-34.0); INR 0.84 (0.9-1.1); Prothrombin Time 8.7 seconds (9.4-11.8)
[2018-06-01 20:25] LABS: Anion Gap 11.9 mEq/L (5-15); Calcium 8.7 mg/dL (8.5-10.1); Potassium 3.9 mmoL/L (3.5-5.1); Uric Acid 5.8 mg/dL (2.6-7.2)
--- NOTE | 2018-06-02 18:21 | History & Physical Report ---
OB - H&P: HPI Antepartum - History of Present Illness Chief complaint: elevated blood pressure History of present illness: 22 yo G1 @ 35 6/7 known chronic hypertension with superimposed preeclampsia Current management with labetolol 200mg BID, twice weekly antepartum testing with BPP and NST, weekly PIH labs and plan to deliver at 37 wks, or sooner if indicated by decompensation of maternal or status. She was having increased back pain and headache last night and presented for evaluation, was noted to have several blood pressure readings in severe range and admitted for observation and repeat 24 hour urine. Since admission, blood pressure has oscillated between mild and severe range, but she has had 15 readings in severe range, with most recent blood pressures 155/86, 166/92, 140/81, 176/105, 188/85, 162/95 monitoring has been reassuring S/P celestone x1 GBS negative After review of all labs and vital signs, she was counseled for IOL Cervix unfavorable and will ripen with cervical balloon tonight, start pitocin tomorrow am - History of Present Obstetrical complications: preeclampsia Medical complications: other (CHTN) - Labs Rubella: nonimmune RPR/VDRL: nonreactive GBS status: negative HBsAG: negative [facility] History I have reviewed the patient's past medical history: Yes Medical History: Reports:: Hypertension Denies:: Anxiety, Depression, Hyperlipidemia, Seizures *Have you ever received a pneumonia vaccine?: No *Have you received a flu vaccine this season?: No Laterality Cases: Other Surgeries: Yes: Cholecystectomy. No: Amputation: No Fractures: No - *Social History Smoking Status: Never smoker Alcohol Intake: never Substance Use Type: denies use *Occupational Status:: employed *Travel in the last 8 weeks: None - Psychiatric History Expresses thoughts of harming self/others: None Pschychiatric History:: Denies:: Anxiety, Depression Family Hx:: No significant family history DESKTOP PUBLISHING OPERATOR history: No DESKTOP PUBLISHING OPERATOR history : 1 Para: 0 Review of Systems - Review of Systems CONSTITUTIONAL: no fever/chills HEENT: no oral lesions PULMONARY: no shortness of breath or difficulty breathing CV: no racing heart, palpitations or chest pain ABD: no abdominal pain, N/V : irreg ctx; no LOF or VB SKIN: no new rash or skin lesions EXT: 2+ edema NEURO: + headache PSYCH: no anxiety/depression Meds Home Medications Medication Instructions Recorded Confirmed Type 1 tab PO DAILY 12/05/17 06/02/18 History vitamin,calcium,jenlafff-mfxt-cxxpw acid tablet omeprazole 10 mg capsule,delayed 10 mg PO DAILY 05/18/18 06/02/18 History release Labetalol HCl [Normodyne 100mg 200 mg PO BID 05/25/18 06/02/18 History tablet] Allergies Allergy/AdvReac Type Severity Reaction Status Date / Time amoxicillin [From AUGMENTIN] Allergy Mild RASH, N/V Verified 05/28/18 08:50 clavulanic acid Allergy Mild RASH,N/V Verified 05/28/18 08:50 [From AUGMENTIN] penicillin G [PENICILLIN G] Allergy Mild RASH,N/V Verified 05/28/18 08:50 clindamycin [CLINDAMYCIN] Allergy Unknown RASH, N/V Verified 05/28/18 08:50 OB - H&P: Exam - Physical Exam Vital signs: Temp Pulse Resp BP Pulse Ox 97.7 F 103 H 20 170/94 H 97 06/01/18 20:15 06/01/18 20:15 06/01/18 20:15 06/01/18 20:15 06/01/18 20:15 Narrative: CONSTITUTIONAL: no acute distress HEENT: mucous membranes moist PULMONARY: breathing unlabored without audible wheezes CV: no tachycardia or visible JVD; normal LE peripheral pulses ABD: soft, NT/ND, no guarding. Gravid uterus. : cervix 1/50/-1 Cervical balloon inserted without complication. Both uterine and vaginal balloons inflated with 40cc sterile water. Patient tolerated catheter insertion well. SKIN: no visible rash or lesions HEME: no lymphadenopathy EXT: 2+ edema LEs NEURO: alert/oriented; 2+ reflexes PSYCH: appropriate mood and demeanor without anxiety/depression NST: Basline: 140s Variability: moderate Accelerations: yes Decelerations: no Impression: Reactive, Category 1 OB - Results - Labs Labs: Short CBC 06/01/18 Range/Units 19:55 WBC 13.2 H (4.8-10.8) K/mm3 Hgb 12.5 (12.2-16.2) g/dL Hct 38.2 (37.0-47.0) % Plt Count 279 (142-424) K/mm3 BMP 06/01/18 19:55 Sodium 140 Potassium 3.9 Chloride 106 Carbon Dioxide 26 BUN 8 Creatinine 0.77 Glucose 100 Calcium 8.7 Liver Function 06/01/18 Range/Units 19:55 AST 6 L (15-37) U/L ALT 21 (12-78) U/L OB - A/P Antepartum (1) 36 weeks gestation of Current visit: Yes Status: Acute (2) Severe preeclampsia Current visit: Yes Status: Acute (3) Pre-eclampsia superimposed on chronic hypertension Current visit: No Status: Acute (4) Chronic hypertension affecting Problem details: No meds currently Current visit: No Status: Acute (5) Obesity affecting Problem details: BMI 50 Current visit: No Status: Acute (6) Rubella non-immune status, antepartum Problem details: MMR Current visit: No Status: Acute - Additional Plan Additional Information:: Admission for IOL Cervical ripening with balloon catheter Start pitocin in am S/P celestone x 1; will repeat dose at 12 hour interval for total of 2 doses In light of severe preeclampsia status and indication for delivery now, will not continue collection of 24 hour urine specimen Continuous monitoring
--- NOTE | 2018-06-03 13:07 | Progress Note ---
[facility] Anesthesia Checklist - Patient Identification Patient Identification: Arm Band, Verbal (Name & ) - Structural Data Admitted From: Home Planned Operative Procedure/s: Labor epidural Consent for Planned Operative Procedure(s) Verified: Yes Verified Documents: Surgical Consent, History and Physical - Chart Verification Results Verified: CBC - Additional verifications Patient : Yes Anesthesia Reactions: No - Airway Assessment C-Spine Mobility Assessed: Yes TMJ Mobility Assessed: Yes Dentition: Good Dentition - Neurological Assessment Level of Consciousness: Awake Hx Seizures: No Numbness or tingling in extremities: No - Anesthesia Plan Anesthesia Risk discussed: Yes Anesthesia Plan: Verified ASA Class: III Anesthesia Type: Epidural [facility] History I have reviewed the patient's past medical history: Yes Medical History: Reports:: Gastroesophageal Reflux Disease(GERD), Hypertension Denies:: Anxiety, Depression, Hyperlipidemia, Seizures *Have you ever received a pneumonia vaccine?: No *Have you received a flu vaccine this season?: No Other Medical History: Reports: Other (Morbid obesity) Laterality Cases: Other Surgeries: Yes: Cholecystectomy. No: Amputation: No Fractures: No - *Social History Smoking Status: Never smoker Alcohol Intake: never Substance Use Type: denies use *Occupational Status:: employed *Travel in the last 8 weeks: None - Psychiatric History Expresses thoughts of harming self/others: None Pschychiatric History:: Denies:: Anxiety, Depression Family Hx:: No significant family history LABORER SHIPYARD history: No LABORER SHIPYARD history Para: 0
--- NOTE | 2018-06-03 15:36 | Progress Note ---
[facility] Anesthesia Record Part I Intake, IV Amount: 1,000 Estimated blood loss (mL): 500 Urine output (mL): 250 Blood Products used (#): none Blood Pressure: 156/102 SaO2: 98 Pulse Rate: 96 Respiratory Rate: 20 Temperature: 101.1 F Patient is:: Awake, Stable Stable to PACU at:: 15:31
--- NOTE | 2018-06-03 15:37 | Progress Note ---
[facility] Anesthesia Record Part II Discharge Time: 16:01 Destination: Obstetric PACU nurse assessment reviewed?: Yes Patient Condition:: Good Anesthesia Complications:: None Swallowing reflex intact?: Yes Cyanosis?: No
--- NOTE | 2018-06-03 15:48 | Progress Note ---
Labor Note - Subjective: Date: 06/03/18 Time: 10:03 Comment:: 36 0/7 IOL severe preeclampsia superimposed on CHTN S/P cervical balloon last pm with progression of cervix from 1cm to 3cm by this am Pitocin augmentation begun and having irregular contractions Intermittent severe range BP but overall 140-150/80-90 tracing overall reassuring - Objective: Cervical Dilation:: 3 Effacement:: 70% Station: -2 Membranes: ruptured Comment:: AROM without complication Clear amniotic fuid IUPC and FSE placed without difficulty - Fetus: Monitoring?: Yes monitoring type:: Internal Comment:: Intermittent moderate-severe variable decelerations with contractions; appropriate & quick return to baseline - Assessment: Labor progressing?: Yes Patient Problems: All Active Problems 36 weeks gestation of (Acute) Severe preeclampsia (Acute) Pre-eclampsia superimposed on chronic hypertension (Acute) Proteinuria complicating (Acute) growth restriction (Acute) Obesity affecting (Acute) Rubella non-immune status, antepartum (Acute) Chronic hypertension affecting (Acute) (Acute)
--- NOTE | 2018-06-03 16:43 | Operative Note ---
Date of procedure: 06/03/18 Pre-op Diagnosis:: 1. IUP @ 36 0/7 2. Chronic hypertension with superimposed preeclampsia 3. Non-reassuring status, remote from delivery 4. Maternal obesity Post-op Diagnosis:: 1. IUP @ 36 0/7 2. Chronic hypertension with superimposed preeclampsia 3. Non-reassuring status, remote from delivery 4. Maternal obesity 5. Tight nuchal cord Procedure performed:: Primary low transverse c section Surgeon:: Mallory Diaz MD PORT CRANE OPERATOR:: Jackson Coteferty Anesthesia: epidural Estimated blood loss (mL): 500 Operative findings:: tight nuchal cord x1 Operative note:: The patient was taken to the OR and prepped/draped in normal sterile fashion. Adequate epidural anesthesia was confirmed. A pfannenstiel skin incision was made with the scalpel and carried down to the fascia. The fascia was incised in the midline and sharply dissected off the rectus muscles. The muscles were in the midline and the peritoneum was entered sharply and extended bluntly. An Reilly-O self retaining retractor was placed in the abdomen and a bladder flap was created. The uterus was incised in the lower uterine segment in a transverse fashion and extended bluntly. The infant was delivered in controlled fashion, without complication or shoulder dystocia. A single tight nuchal cord was noted and reduced on the field. The was vigorous at and handed to awaiting cigarette and filter chief inspector for evaluation after cord clamped and cut. Cord blood was collected for pHand a cord segment was preserved. The placenta was manually extracted and noted to be intact. The uterus was repaired with 0- vicryl in a running/locked fashion using 2 layers. The peritoneum was closed with 2-0 vicryl in a running fashion. The fascia was closed with #1 vicryl in a running fashion. The subcutaneous fat was closed with 2-0 vicryl in an interrupted fashion. The skin was closed with eduardo. The patient tolerated the procedure well. Sponge, lap, needle and instrument counts were correct x 2. She was taken to PACU awake and in stable condition. Condition: stable Disposition: PACU Complications:: none
[2018-06-04 05:04] VITALS: BP 143/88
[2018-06-04 06:36] LABS: Basophils % 0.2 % (0.1-2.0); Eosinophils % 0.1 % (0.1-12.0); Hematocrit 35.9 % (37.0-47.0); Hemoglobin 11.6 g/dL (12.2-16.2); Lymphocytes # 3.4 K/mm3 (0.7-4.5); Lymphocytes % 18.5 % (10-50); Mean Corpuscular HGB Conc 32.2 g/dL (31.8-35.4); Mean Corpuscular Hemoglobin 27.7 pg (27.0-31.2); Mean Platelet Volume 8.9 fl (7.4-10.4); Monocytes # 1.3 K/mm3 (0.1-1.0); Neutrophils # 13.6 K/mm3 (1.8-7.8); Neutrophils % 74.3 % (37.0-80.0); Platelet Count 270 K/mm3 (142-424); Red Blood Count 4.18 M/mm3 (4.20-5.40); Red Cell Distribution Width 13.8 % (11.5-17.5); White Blood Count 18.3 K/mm3 (4.8-10.8)
[2018-06-04 08:04] LABS: Lymphocytes % 17 % (10-50); Monocytes % 7 % (2-9); Neutrophils % 73 % (42-76); Total Cells Counted 100
[2018-06-04 08:05] LABS: RBC Morphology Normal
--- NOTE | 2018-06-04 17:58 | Progress Note ---
Internal Medicine - PN: Subj *Date: 06/04/18 *Time: 12:54 Interval history: POD #1 primary CS for non-reassuring status No new complaints Blood pressure has been stable on labetalol 300mg BID Denies PIH symptoms Antibiotics continued for second dose to give extended coverage with abdominal boil that was present prior to surgery Exam Vital signs and Labs for Last 24 Hours: Temp Pulse Resp BP Pulse Ox 98.1 F 100 H 18 143/88 H 98 06/04/18 04:12 06/04/18 04:12 06/04/18 04:12 06/04/18 04:12 06/04/18 04:12 Laboratory Results - last 24 hr 06/04/18 06:10: WBC 18.3 H D, RBC 4.18 L, Hgb 11.6 L, Hct 35.9 L, MCV 86.0, MCH 27.7, MCHC 32.2, RDW 13.8, Plt Count 270, MPV 8.9, Neut % (Auto) 74.3, Lymph % (Auto) 18.5, [place] % (Auto) 7.0, Eos % (Auto) 0.1, Baso % (Auto) 0.2, Neut # (Auto) 13.6 H, Lymph # (Auto) 3.4, [place] # (Auto) 1.3 H, Eos # (Auto) 0.0, Baso # (Auto) 0.0, Total Counted 100, Neutrophils % (Manual) 73, Band Neutrophils % 2.0, Lymphocytes % (Manual) 17, Atypical Lymphs % 1.0, Monocytes % (Manual) 7, Platelet Estimate Normal, RBC Morphology Normal I & O for Last 24 hours: Intake & Output 06/02/18 06/03/18 06/04/18 06/05/18 11:59 11:59 11:59 11:59 Intake Total 1000 / 1000 Output Total 800 / 800 100 / 100 300 / 300 Balance -800 / -800 -100 / -100 700 / 700 Weight 663 lb 9.462 oz 301 lb Narrative: CONSTITUTIONAL: no acute distress HEENT: mucous membranes moist PULMONARY: breathing unlabored without audible wheezes CV: no tachycardia or visible JVD; normal LE peripheral pulses ABD: soft, ND; appropriately tender but no rebound/guarding : fundus firm at/below umbilicus SKIN: incision well approximated with no drainage, erythema or induration EXT: 2+ edema LEs NEURO: alert/oriented, no altered mental status PSYCH: appropriate mood and demeanor without anxiety/depression Assessment and Plan (1) 36 weeks gestation of Current visit: Yes Status: Acute Category: Medical Code(s): Z3A.36 - 36 weeks gestation of (2) Severe preeclampsia Current visit: Yes Status: Acute Category: Medical Code(s): O14.10 - Severe pre-eclampsia, unspecified trimester (3) Pre-eclampsia superimposed on chronic hypertension Current visit: Yes Status: Acute Category: Medical Code(s): O11.9 - Pre- existing hypertension with pre-eclampsia, unspecified trimester (4) Chronic hypertension affecting Problem details: No meds currently Current visit: Yes Status: Acute Category: Medical Code(s): O10.919 - Unspecified pre-existing hypertension complicating , unspecified trimester (5) Obesity affecting Problem details: BMI 50 Current visit: Yes Status: Acute Category: Medical Code(s): O99.210 - Obesity complicating , unspecified trimester (6) Rubella non-immune status, antepartum Problem details: MMR Current visit: Yes Status: Acute Category: Medical Code(s): O99.89 - Other specified diseases and conditions complicating , childbirth and the puerperium; Z28.3 - Underimmunization status - Assessment and plan all Dx Assessment and Plan for all problems:: Continue labetalol 300mg po BID Discontinue IV after second dose vancomycin Possible discharge home POD #3, depending on infant status (36 wks)
--- NOTE | 2018-06-05 16:01 | Progress Note ---
Internal Medicine - PN: Subj *Date: 06/05/18 *Time: 15:59 Interval history: POD #2 primary CS No complaints Ambulating and voiding without difficulty Tolerating a regular diet Exam Vital signs and Labs for Last 24 Hours: Temp Pulse Resp BP Pulse Ox 98.1 F 100 H 18 143/88 H 98 06/04/18 04:12 06/04/18 04:12 06/04/18 04:12 06/04/18 04:12 06/04/18 04:12 I & O for Last 24 hours: Intake & Output 06/03/18 06/04/18 06/05/18 06/06/18 11:59 11:59 11:59 11:59 Intake Total 1000 / 1000 Output Total 100 / 100 300 / 300 Balance -100 / -100 700 / 700 Weight 301 lb Narrative: CONSTITUTIONAL: no acute distress HEENT: mucous membranes moist PULMONARY: breathing unlabored without audible wheezes CV: no tachycardia or visible JVD; normal LE peripheral pulses ABD: soft, ND; appropriately tender but no rebound/guarding : fundus firm at/below umbilicus SKIN: incision well approximated with no drainage, erythema or induration EXT: 1+ edema LEs NEURO: alert/oriented, no altered mental status PSYCH: appropriate mood and demeanor without anxiety/depression Assessment and Plan (1) 36 weeks gestation of Current visit: Yes Status: Acute Category: Medical Code(s): Z3A.36 - 36 weeks gestation of (2) Severe preeclampsia Current visit: Yes Status: Acute Category: Medical Code(s): O14.10 - Severe pre-eclampsia, unspecified trimester (3) Pre-eclampsia superimposed on chronic hypertension Current visit: Yes Status: Acute Category: Medical Code(s): O11.9 - Pre- existing hypertension with pre-eclampsia, unspecified trimester (4) Chronic hypertension affecting Problem details: No meds currently Current visit: Yes Status: Acute Category: Medical Code(s): O10.919 - Unspecified pre-existing hypertension complicating , unspecified trimester (5) Obesity affecting Problem details: BMI 50 Current visit: Yes Status: Acute Category: Medical Code(s): O99.210 - Obesity complicating , unspecified trimester (6) Rubella non-immune status, antepartum Problem details: MMR Current visit: Yes Status: Acute Category: Medical Code(s): O99.89 - Other specified diseases and conditions complicating , childbirth and the puerperium; Z28.3 - Underimmunization status - Assessment and plan all Dx Assessment and Plan for all problems:: routine postop care anticipate discharge home tomorrow
--- NOTE | 2018-06-06 13:13 | Discharge Summary ---
General - General Admission date:: 06/02/18 Discharge date: 06/06/18 HPI HPI: POD #3 primary LTCS Blood pressure has remained controlled on labetalol 300mg BID Tolerating regular diet, ambulating and voiding without difficulty Discharged home on POD #3 Will return to hospital on POD #6 for staple removal Hospital Course Hospital Course: see HPI Rhogam Administration: Not Indicated Objective Vital signs: Temp Pulse Resp BP Pulse Ox 98.1 F 100 H 18 143/88 H 98 06/04/18 04:12 06/04/18 04:12 06/04/18 04:12 06/04/18 04:12 06/04/18 04:12 Narrative: CONSTITUTIONAL: no acute distress HEENT: mucous membranes moist PULMONARY: breathing unlabored without audible wheezes CV: no tachycardia or visible JVD; normal LE peripheral pulses ABD: soft, ND; appropriately tender but no rebound/guarding : fundus firm at/below umbilicus SKIN: incision well approximated with no drainage, erythema or induration EXT: 1+ edema LEs NEURO: alert/oriented, no altered mental status PSYCH: appropriate mood and demeanor without anxiety/depression DS: Diagnosis - Discharge Diagnosis (1) 36 weeks gestation of Status: Acute (2) Severe preeclampsia Status: Acute (3) Pre-eclampsia superimposed on chronic hypertension Status: Acute (4) Chronic hypertension affecting Status: Acute Problem details: No meds currently (5) Obesity affecting Status: Acute Problem details: BMI 50 (6) Rubella non-immune status, antepartum Status: Acute Problem details: MMR Discharge Plan - Patient Discharge Instructions ACTIVITY: Continue current activity DIET: regular diet - Follow up Plan Disposition: Home, Self-Retirement Medications: Home Medications Medication Instructions Recorded Confirmed Type 1 tab PO DAILY 12/05/17 06/02/18 History vitamin,calcium,uxaipzie-ilaf-zjyom acid tablet omeprazole 10 mg capsule,delayed 10 mg PO DAILY 05/18/18 06/02/18 History release Labetalol HCl [Normodyne 100mg 200 mg PO BID 05/25/18 06/02/18 History tablet] Ibuprofen [Motrin 400mg 400 mg PO Q4HP PRN #60 tab 06/06/18 Rx tablet] Labetalol HCl [Normodyne 100mg 300 mg PO BID #180 tab 06/06/18 Rx tablet] Oxycodone HCl [OxyIR 5mg tablet] 10 mg PO Q4HP PRN #40 tab 06/06/18 Rx Prescriptions/Medication Reconciliation: New Oxycodone HCl [OxyIR 5mg tablet] 10 mg PO Q4HP PRN #40 tab PRN Reason: Moderate To Severe Pain Labetalol HCl [Normodyne 100mg tablet] 300 mg PO BID #180 tab Ibuprofen [Motrin 400mg tablet] 400 mg PO Q4HP PRN #60 tab PRN Reason: Moderate Pain Continued vitamin,calcium,vtdklgjw-sawn-ncsii acid tablet 1 tab PO DAILY omeprazole 10 mg capsule,delayed release 10 mg PO DAILY Labetalol HCl [Normodyne 100mg tablet] 200 mg PO BID
== END 2018-06-06 14:40 | disposition home or self-care (01) | DRG 787 ==
LOC: OB 18:02 → OBOUT 18:02 → OB 18:04 → OBSVTOIN 19:02 → INTOOBSV 19:02
PROVIDERS: ADMIT Obstetrics & Gynecology; ATTEND Obstetrics & Gynecology
CPT/HCPCS: 36415; 59025; 80048; 82800; 84450; 84460; 84550; 85007; 85025; 85378; 85384; 85610; 85730; 86850; 90707; 94761; C1758; G0378; J3370

== ENCOUNTER → 2019-03-01 07:34 | Outpatient (CLI) | payer BC, SELFPAY ==
--- NOTE | 2019-03-01 07:41 | US_ITS ---
PROCEDURE: US LIVER CLINICAL INDICATION: ELEVATED LIVER ENZYMES COMPARISON: No exams were available for comparison FINDINGS: PANCREAS: Unremarkable. No obvious mass or abnormal fluid collection. No ductal dilatation LIVER: There is mild diffuse fatty infiltration of the liver. No focal liver lesions demonstrated. Homogeneous echogenicity. No intrahepatic biliary ductal dilatation evident. There is appropriate direction of blood flow within a non dilated portal vein RIGHT KIDNEY: Unremarkable. Normal size and echogenicity. No hydronephrosis GALLBLADDER: Surgically absent. IMPRESSION: Fatty infiltration of the liver status post cholecystectomy. Dictated by: William Lopez 03/01/2019 12:59 Electronically signed by William Lopez in [facility] 03/01/2019 12:59
== END ==
PROVIDERS: PCP Nurse Practitioner Family; Visit Provider Nurse Practitioner Family
DX: R74.8 Abnormal levels of other serum enzymes (principal)
CPT/HCPCS: 76705

== ENCOUNTER → 2019-06-03 12:37 | Outpatient (CLI) | payer BC, SELFPAY ==
--- NOTE | 2019-06-03 12:48 | US_ITS ---
PROCEDURE: US OB TRANSVAGINAL CLINICAL INDICATION: size and dates Evaluate dates COMPARISON: OBBIO US OB biophysical profile from 06/01/2018 FINDINGS: An intrauterine gestational sac is present with a pole with a crown-rump length of 0.95cm correlating to gestational age of 7weeks. heart tones are present with an FHR of 164bpm. Yolk sac is noted. There is a 2 cm right corpus luteum cyst IMPRESSION: Live IUP at 7 weeks. Estimated due date by Ultrasound is 01/20/2020 Dictated by: Merritt Zuñiga MD 06/03/2019 13:46 Electronically signed by Merritt Zuñiga MD in [facility] 06/03/2019 13:46
[2019-06-03 14:10] LABS: Basophils # 0.1 K/mm3 (0-0.2); Basophils % 0.4 % (0.1-2.0); Eosinophils # 0.1 K/mm3 (0.0-0.4); Eosinophils % 0.5 % (0.1-12.0); Hematocrit 41.3 % (37.0-47.0); Hemoglobin 13.5 g/dL (12.2-16.2); Lymphocytes # 2.7 K/mm3 (0.7-4.5); Mean Corpuscular HGB Conc 32.7 g/dL (31.8-35.4); Mean Corpuscular Hemoglobin 28.2 pg (27.0-31.2); Mean Corpuscular Volume 86.4 fl (81-99); Mean Platelet Volume 8.9 fl (7.4-10.4); Monocytes # 0.4 K/mm3 (0.1-1.0); Monocytes % 3.6 % (1.7-9.3); Neutrophils % 71.5 % (37.0-80.0); Platelet Count 313 K/mm3 (142-424); Red Blood Count 4.78 M/mm3 (4.20-5.40); Red Cell Distribution Width 13.7 % (11.5-17.5); White Blood Count 11.1 K/mm3 (4.8-10.8)
[2019-06-03 16:08] LABS: Amphetamine/Metha Screen,Urine Negative ng/ml (<1000)
[2019-06-03 16:09] LABS: Barbiturates Screen,Urine Negative ng/ml (<200)
[2019-06-03 16:10] LABS: Benzodiazepines Screen,Urine Negative ng/ml (<200); Cannabinoid Screen,Urine Negative ng/ml (<50)
[2019-06-03 16:11] LABS: Cocaine Screen,Urine Negative ng/ml (<300)
[2019-06-03 16:12] LABS: Methadone Screen,Urine Negative ng/ml (<300); Opiate Screen,Urine Negative ng/ml (<300)
[2019-06-03 16:13] LABS: Phencyclidine Screen,Urine Negative ng/ml (<25)
[2019-06-03 16:59] LABS: Thyroid Stimulating Hormone 5.81 uIU/mL (0.465-4.68)
[2019-06-05 11:17] LABS: HIV Screen 4th Generation wRfx Non Reactive (Non Reactive); Hepatitis B Surface Antigen Negative (Negative); Hepatitis C Antibody <0.1 s/co ratio (0.0-0.9); Rapid Plasma Reagin Ab Titer Non Reactive (NonRea<1:1)
== END ==
PROVIDERS: PCP Nurse Practitioner Family; Visit Provider Obstetrics & Gynecology
DX: Z34.90 Encounter for supervision of normal pregnancy, unspecified, unspecified trimester (principal)
CPT/HCPCS: 36415; 76817; 80305; 84443; 85025; 86592; 86703; 86762; 86850; 87340; 87380; G0432

== ENCOUNTER → 2019-06-08 16:49 | Outpatient (CLI) | payer BC, SELFPAY | PROVIDERS: Visit Provider Obstetrics & Gynecology | DX: N39.0 Urinary tract infection, site not specified (principal) | CPT/HCPCS: 87086; 87088; 87186 ==

== ENCOUNTER 2019-07-02 19:12 | Emergency (ER) | payer BC, SELFPAY ==
[2019-07-02 19:14] VITALS: BP 152/88; PULSE 96; RESP 18; TEMP 37.1; O2SAT 100; BMI 44.8
--- NOTE | 2019-07-02 19:20 | US_ITS ---
PROCEDURE: US OB TRANSVAGINAL CLINICAL INDICATION: with syncope COMPARISON: US OB TRANSVAGINAL from 06/03/2019 FINDINGS: An intrauterine gestational sac is present with a pole with a crown-rump length of 4.26 cm correlating to gestational age of 11 weeks 1 day. heart tones are present with an FHR of 161 BPM. The fetus is in breech position. The placenta is posterior. There is a 2.5 cm right ovarian cyst IMPRESSION: Live IUP at 11 weeks 1 day Estimated due date by Ultrasound is Dictated by: Merritt Zuñiga MD 07/02/2019 21:43 Electronically signed by Merritt Zuñiga MD in [facility] 07/02/2019 21:43
--- NOTE | 2019-07-02 19:41 | HMH.EDDIZZ ---
ED Disposition Clinical Impression: Dehydration, , Obesity affecting Disposition: Home, Self-Care Condition on Discharge: Good Instructions: DI for Syncope in Adults (Fainting), DI for Syncope in Children (Fainting) Referrals: Zenaida Costa APRN [Primary Care Provider] - - Critical Care Critical Care Time: No Attestation: On 07/02/19, the high probability of a clinically significant, sudden or life threatening deterioration of the following system(s) required my full and direct attention, intervention and personal management. The time I documented below is in addition to time spent performing reported procedures but includes the following listed in this critical care notation. Medical Decision Making - Medical Records Medical records reviewed: Yes: I reviewed the patient's medical records. - Martín Inquiry Pt receiving controlled substance: No Vital Signs: 07/02/19 19:14 Temperature 98.8 F Temperature Source Oral Pulse Rate [Right Brachial] 96 H Respiratory Rate 18 Blood Pressure [Right Arm] 152/88 H Blood Pressure Mean [Right Arm] 109 Blood Pressure Source [Right Arm] Automatic Cuff Blood Pressure Position [Right Arm] Sitting 02 Sat by Pulse Oximetry 100 Oxygen Delivery Method Room Air - Lab Data Lab results reviewed: Yes: I reviewed the patient's lab results. Lab Results 07/02/19 19:45: Urine Color Yellow, Urine Appearance Clear, Urine pH 6.5, Ur Specific [place] 1.020, Urine Protein 1+, Urine Glucose (UA) Negative, Urine Ketones Negative, Urine Blood Negative, Urine Nitrate Negative, Urine Bilirubin Negative, Urine Urobilinogen 0.2, Ur Leukocyte Esterase Negative, Urine WBC Occasional, Ur Squamous Epith Cells 3-5, Urine Bacteria Trace 07/02/19 19:55: WBC 13.3 H, RBC 4.85, Hgb 13.7, Hct 41.6, MCV 85.8, MCH 28.2, MCHC 32.8, RDW 13.9, Plt Count 273, MPV 8.4, Neut % (Auto) 75.3, Lymph % (Auto) 20.4, [place] % (Auto) 3.4, Eos % (Auto) 0.5, Baso % (Auto) 0.5, Neut # (Auto) 10.0 H, Lymph # (Auto) 2.7, [place] # (Auto) 0.5, Eos # (Auto) 0.1, Baso # (Auto) 0.1 Result diagrams: 07/02/19 19:55 Orders (Tests/Meds): ED MEDICATIONS Generic Name Dose Route Start Last Admin Trade Name Tiffanie PRN Reason Stop Dose Admin Sodium Chloride 1,000 mls @ 999 mls/hr 07/02/19 19:30 07/02/19 19:25 Sod Chlor 0.9% 1000ml Bag IV 07/02/19 20:30 999 mls/hr .Q1H1M IRIS Administration ORDERS Category Date Time Status Comprehensive Metabolic Panel Stat Lab 07/02/19 19:55 Received US OB transvaginal Stat Ultrasound 07/02/19 19:20 Ordered Dizzy HPI - General Chief Complaint: Syncope Stated Complaint: syncope Time Seen by Provider: 07/02/19 20:00 Mode of Arrival: Family Vehicle Limitations: No Limitations Description of Symptoms (Recalled from ER Triage Doc. by RN): syncopal episode while peeling potatoes; no prev illness, currently 11 weeks . no pain, assisted fall to floor-no injury - History of Present Illness HPI Narrative: 23-year-old female presents as a G2, P1 roughly at 11 to 12 weeks gestation. Patient was at home standing for prolonged period of time peeling potatoes and she felt a little lightheaded and almost that she felt like she was going to pass out she was helped to the floor and sat there for a minute and then they went ahead and called 911 for the patient to come into the ED to get checked out. Patient denies any overt symptoms she denies any nausea or vomiting. She denies any dysuria. She denies any urinary frequency. She also denies any loss of fluid or spotting or bleeding or suprapubic or abdominal cramping. - Related Data Home Medications Medication Instructions Recorded Confirmed prenat.vits,joey,cin-syim-eqbat 1 tab PO DAILY 06/08/19 06/08/19 Previous Rx's Medication Instructions Recorded nitrofurantoin 100 mg PO BID 7 Days #14 cap 06/08/19 monohydrate/macrocrystals 100 mg capsule Allergies Allergy/AdvReac Type Severity Reac
[2019-07-02 19:58] LABS: Appearance,Urine CLEAR (Clear); Bilirubin,Urine Negative (Negative); Blood, Urine Negative (Negative); Color,Urine YELLOW (Yellow); Glucose,Urine (UA) Negative (Negative); Ketones,Urine Negative (Negative); Leukocyte Esterase,Urine Negative (Negative); Microscopic, Urine URINE MICROSCOPIC (MICROSCOPIC); Nitrate,Urine Negative (Negative); PH,Urine 6.5 (5.0-8.5); Protein,Urine 1+ (Negative); Urobilinogen,Urine 0.2 EU/dl (0.2)
[2019-07-02 20:22] LABS: Bacteria,Urine Trace /lpf; WBC,Urine Occasional #/hpf (0-3)
[2019-07-02 20:28] LABS: Basophils # 0.1 K/mm3 (0-0.2); Basophils % 0.5 % (0.1-2.0); Eosinophils # 0.1 K/mm3 (0.0-0.4); Eosinophils % 0.5 % (0.1-12.0); Hematocrit 41.6 % (37.0-47.0); Hemoglobin 13.7 g/dL (12.2-16.2); Lymphocytes # 2.7 K/mm3 (0.7-4.5); Lymphocytes % 20.4 % (10-50); Mean Corpuscular HGB Conc 32.8 g/dL (31.8-35.4); Mean Corpuscular Hemoglobin 28.2 pg (27.0-31.2); Mean Corpuscular Volume 85.8 fl (81-99); Mean Platelet Volume 8.4 fl (7.4-10.4); Monocytes # 0.5 K/mm3 (0.1-1.0); Monocytes % 3.4 % (1.7-9.3); Neutrophils % 75.3 % (37.0-80.0); Platelet Count 273 K/mm3 (142-424); Red Blood Count 4.85 M/mm3 (4.20-5.40); Red Cell Distribution Width 13.9 % (11.5-17.5); White Blood Count 13.3 K/mm3 (4.8-10.8)
[2019-07-02 20:57] LABS: Chloride 102 mmol/L (98-107); Potassium 3.4 mmoL/L (3.5-5.1); Sodium 136 mmol/L (136-145)
[2019-07-02 21:00] LABS: Alanine Aminotransferase 19 U/L (12-78); Albumin Level 4.2 g/dl (3.5-5.0); Albumin/Globulin Ratio 1.4 (1.1-1.8); Alkaline Phosphatase 67 U/L (38-126); Anion Gap 13.4 mEq/L (5-15); Aspartate Amino Transferase 18 U/L (14-36); Bilirubin,Total 0.5 mg/dl (0.2-1.3); Blood Urea Nitrogen 5 mg/dl (7-17); Calcium 9.4 mg/dl (8.4-10.2); Carbon Dioxide 24 mmol/L (22.0-30.0); Creatinine Clearance Estimated 116 mL/min (50-200); Estimated Glomerular Filt Rate 125 ml/min (>60); GFR (African American) 151 ML/MIN (>60); Glucose 104 mg/dl (74-100); Total Protein,Serum 7.2 g/dl (6.3-8.2)
[2019-07-02 21:06] VITALS: BP 123/75; PULSE 73; RESP 18; TEMP 36.8; O2SAT 98
== END 2019-07-02 21:10 | disposition home or self-care (01) ==
PROVIDERS: Emergency Provider Family Medicine; PCP Nurse Practitioner Family
DX: O99.211 Obesity complicating pregnancy, first trimester (principal); E86.0 Dehydration; K21.9 Gastro-esophageal reflux disease without esophagitis; Z88.0 Allergy status to penicillin; Z90.09 Acquired absence of other part of head and neck; Z90.49 Acquired absence of other specified parts of digestive tract
CPT/HCPCS: 36415; 76817; 80053; 81001; 85025; 96365; 99282; 99283

== ENCOUNTER → 2019-08-23 13:29 | Outpatient (CLI) | payer BC, SELFPAY ==
--- NOTE | 2019-08-23 13:30 | US_ITS ---
PROCEDURE: US OB /MATERNAL DETAIL CLINICAL INDICATION: complete anatomy scan Twenty week anatomy exam COMPARISON: US OB TRANSVAGINAL from 07/02/2019 FINDINGS: There is a single live fetus which is in breech position. heart and body motion is noted. The placenta is posterior and grade 1 in implantation. The cervix is closed at 3.8 cm. All parameters correlate with no obvious anomalies. Complete survey performed and was unremarkable on the submitted images as in PACS. No discrete anomalies identified on survey imaging by technologist. Active fetus. Three-vessel cord with satisfactory umbilical cord insertion. 4- chamber heart noted. Survey of brain & ventricles Unremarkable. Face and neck survey unremarkable. Diaphragm and chest views unremarkable. Abdomen: Both kidneys noted and unremarkable. Stomach noted and satisfactory. Spine: Survey of the spine satisfactory with no anomalies identified nor imaged. Both arms and legs noted. Amniotic Fluid: Adequate. Maternal adnexa: No significant findings. Measurements: Average ultrasound age 18weeks 6days. Gestational Age 18weeks 4days Estimated due date by ultrasound age 1201/18/2020. Estimated weight 276g BPD = 18weeks 5days OFD = 18weeks 5days HC = 18weeks AC = 19weeks 5days FL = 18weeks 6days Growth Percentile= 79Percent% Heart Rate = 150bpm Cerebellum = 18weeks 4days Humerus = 20weeks 5days HC/AC is 1.04 CI is 0.79 FL/BPD is 0.69 FL/AC is 0.2 IMPRESSION: Live IUP at 18 weeks 6 days in breech presentation. No obvious anomalies. Please see above for detail Dictated by: Merritt Zuñiga MD 08/24/2019 12:27 Electronically signed by Merritt Zuñiga MD in [facility] 08/24/2019 12:27
== END ==
PROVIDERS: PCP Nurse Practitioner Family; Visit Provider Obstetrics & Gynecology
DX: Z34.90 Encounter for supervision of normal pregnancy, unspecified, unspecified trimester (principal)
CPT/HCPCS: 76811

== ENCOUNTER → 2019-10-25 08:52 | Outpatient (CLI) | payer BC, SELFPAY ==
[2019-10-25 11:03] LABS: Glucose 1 Hour 119 mg/dL (74-100)
== END ==
PROVIDERS: Visit Provider Obstetrics & Gynecology
DX: Z34.90 Encounter for supervision of normal pregnancy, unspecified, unspecified trimester (principal)
CPT/HCPCS: 36415; 82947

== ENCOUNTER 2019-12-04 09:56 | Outpatient (CLI) | payer BC, SELFPAY ==
[2019-12-04 10:10] VITALS: BP 129/65; PULSE 117; RESP 20; TEMP 36.8; O2SAT 97; BMI 51.5
[2019-12-04 10:55] LABS: Microscopic, Urine URINE MICROSCOPIC (MICROSCOPIC)
[2019-12-04 10:56] LABS: Appearance,Urine CLEAR (Clear); Bilirubin,Urine Negative (Negative); Blood, Urine Negative (Negative); Color,Urine YELLOW (Yellow); Glucose,Urine (UA) Negative (Negative); Ketones,Urine Negative (Negative); Leukocyte Esterase,Urine Negative (Negative); Nitrate,Urine Negative (Negative); PH,Urine 7.5 (5.0-8.5); Protein,Urine Negative (Negative); Urobilinogen,Urine 0.2 EU/dl (0.2)
[2019-12-04 11:08] LABS: Bacteria,Urine 2+ /lpf; Barbiturates Screen,Urine Negative ng/ml (<200)
[2019-12-04 11:09] LABS: Benzodiazepines Screen,Urine Negative ng/ml (<200)
[2019-12-04 11:10] LABS: Amphetamine/Metha Screen,Urine Negative ng/ml (<1000); Cannabinoid Screen,Urine Negative ng/ml (<50)
[2019-12-04 11:11] LABS: Cocaine Screen,Urine Negative ng/ml (<300); Methadone Screen,Urine Negative ng/ml (<300)
[2019-12-04 11:12] LABS: Opiate Screen,Urine Negative ng/ml (<300)
[2019-12-04 11:13] LABS: Phencyclidine Screen,Urine Negative ng/ml (<25)
== END 2019-12-04 11:10 | disposition home or self-care (01) ==
LOC: OBOUT 09:58 → OB 09:58
PROVIDERS: PCP Nurse Practitioner Family; Visit Provider Obstetrics & Gynecology
DX: O36.8130 Decreased fetal movements, third trimester, not applicable or unspecified (principal); Z3A.33 33 weeks gestation of pregnancy; M54.5 Low back pain
CPT/HCPCS: 80305; 81001; 87086

== ENCOUNTER 2019-12-13 16:34 | Outpatient (CLI) | payer BC, SELFPAY ==
[2019-12-13 16:55] VITALS: BMI 51.8
[2019-12-13 17:17] VITALS: BP 135/83; PULSE 109; RESP 18; TEMP 36.9; O2SAT 97; BMI 51.7
[2019-12-13 17:54] LABS: Microscopic, Urine URINE MICROSCOPIC (MICROSCOPIC)
[2019-12-13 18:07] LABS: Appearance,Urine CLEAR (Clear); Bilirubin,Urine Negative (Negative); Blood, Urine Negative (Negative); Color,Urine YELLOW (Yellow); Glucose,Urine (UA) Negative (Negative); Ketones,Urine Negative (Negative); Leukocyte Esterase,Urine Negative (Negative); Nitrate,Urine Negative (Negative); Protein,Urine Negative (Negative); Specific Gravity, Urine 1.025 (1.005-1.030); Urobilinogen,Urine 0.2 EU/dl (0.2)
[2019-12-13 18:19] LABS: Amphetamine/Metha Screen,Urine Negative ng/ml (<1000)
[2019-12-13 18:20] LABS: Barbiturates Screen,Urine Negative ng/ml (<200); Benzodiazepines Screen,Urine Negative ng/ml (<200)
[2019-12-13 18:21] LABS: Cannabinoid Screen,Urine Negative ng/ml (<50)
[2019-12-13 18:22] LABS: Cocaine Screen,Urine Negative ng/ml (<300); Methadone Screen,Urine Negative ng/ml (<300)
[2019-12-13 18:23] LABS: Opiate Screen,Urine Negative ng/ml (<300); Phencyclidine Screen,Urine Negative ng/ml (<25)
[2019-12-13 19:33] LABS: Bacteria,Urine 3+ /lpf
== END 2019-12-13 18:36 | disposition home or self-care (01) ==
LOC: OBOUT 16:36 → OB 16:37
PROVIDERS: PCP Nurse Practitioner Family; Visit Provider Obstetrics & Gynecology
DX: O47.03 False labor before 37 completed weeks of gestation, third trimester (principal); Z3A.34 34 weeks gestation of pregnancy
CPT/HCPCS: 59025; 80305; 81001; 87086; G0463

== ENCOUNTER → 2019-12-27 16:11 | Outpatient (CLI) | payer BC, SELFPAY | PROVIDERS: Visit Provider Obstetrics & Gynecology | DX: Z34.90 Encounter for supervision of normal pregnancy, unspecified, unspecified trimester (principal) | CPT/HCPCS: 86403 ==

== ENCOUNTER 2019-12-27 16:12 | Outpatient (CLI) | payer BC, SELFPAY ==
[2019-12-27 16:22] VITALS: BMI 52.4
[2019-12-27 16:27] VITALS: BP 127/83; PULSE 116; RESP 18; TEMP 37.2; O2SAT 97; BMI 52.4
[2019-12-27 17:30] LABS: Basophils % 0.2 % (0.1-2.0); Eosinophils % 0.1 % (0.1-12.0); Hematocrit 37.2 % (37.0-47.0); Hemoglobin 12.2 g/dL (12.2-16.2); Lymphocytes # 2.4 K/mm3 (0.7-4.5); Lymphocytes % 19.4 % (10-50); Mean Corpuscular HGB Conc 32.8 g/dL (31.8-35.4); Mean Corpuscular Hemoglobin 26.7 pg (27.0-31.2); Mean Corpuscular Volume 81.6 fl (81-99); Monocytes # 0.6 K/mm3 (0.1-1.0); Monocytes % 5.1 % (1.7-9.3); Neutrophils # 9.4 K/mm3 (1.8-7.8); Neutrophils % 75.1 % (37.0-80.0); Platelet Count 290 K/mm3 (142-424); Red Blood Count 4.56 M/mm3 (4.20-5.40); Red Cell Distribution Width 14.8 % (11.5-17.5); White Blood Count 12.5 K/mm3 (4.8-10.8)
[2019-12-27 17:43] LABS: Fibrinogen 452 mg/dL (204-500); INR 0.87 (0.9-1.1); Prothrombin Time 9.8 seconds (9.4-11.8)
[2019-12-27 17:51] LABS: Activated Partial Thrombo Time 21.4 seconds (23.6-34.0)
[2019-12-27 17:57] LABS: Alanine Aminotransferase 17 U/L (12-78); Anion Gap 12.6 mEq/L (5-15); Aspartate Amino Transferase 23 U/L (14-36); Blood Urea Nitrogen 9 mg/dl (7-17); Calcium 9.5 mg/dl (8.4-10.2); Carbon Dioxide 24 mmol/L (22.0-30.0); Chloride 105 mmol/L (98-107); Creatinine Clearance Estimated 115 mL/min (50-200); Estimated Glomerular Filt Rate 124 ml/min (>60); GFR (African American) 150 ML/MIN (>60); Glucose 112 mg/dl (74-100); Potassium 3.6 mmoL/L (3.5-5.1); Sodium 138 mmol/L (136-145); Uric Acid 5.4 mg/dl (2.5-6.2)
== END 2019-12-27 17:40 | disposition home or self-care (01) ==
LOC: OBOUT 16:15 → OB 16:16
PROVIDERS: PCP Obstetrics & Gynecology; Visit Provider Obstetrics & Gynecology
DX: O13.3 Gestational [pregnancy-induced] hypertension without significant proteinuria, third trimester (principal); Z3A.36 36 weeks gestation of pregnancy
CPT/HCPCS: 59025; 80048; 84450; 84460; 84550; 85025; 85378; 85384; 85610; 85730; G0463

== ENCOUNTER 2020-01-11 10:39 | Inpatient (IN) | payer BC, SELFPAY ==
[2020-01-11] VITALS (8 sets, daily range): BP systolic 103–140; BP diastolic 69–98; PULSE 82–103; RESP 16–18; TEMP 36.7–37.8; O2SAT 96–99; BMI 53.4; BMI 53.7
[2020-01-11 11:36] LABS: Basophils % 0.3 % (0.1-2.0); Eosinophils % 0.1 % (0.1-12.0); Hematocrit 40.7 % (37.0-47.0); Hemoglobin 13.1 g/dL (12.2-16.2); Lymphocytes % 25.5 % (10-50); Mean Corpuscular HGB Conc 32.2 g/dL (31.8-35.4); Mean Corpuscular Hemoglobin 26.3 pg (27.0-31.2); Mean Corpuscular Volume 81.7 fl (81-99); Mean Platelet Volume 9.7 fl (7.4-10.4); Monocytes # 0.7 K/mm3 (0.1-1.0); Neutrophils % 68.1 % (37.0-80.0); Platelet Count 276 K/mm3 (142-424); Red Blood Count 4.98 M/mm3 (4.20-5.40); Red Cell Distribution Width 14.7 % (11.5-17.5); White Blood Count 11.7 K/mm3 (4.8-10.8)
[2020-01-11 11:52] LABS: Alanine Aminotransferase 15 U/L (12-78); Aspartate Amino Transferase 20 U/L (14-36); Blood Urea Nitrogen 7 mg/dl (7-17); Calcium 9.6 mg/dl (8.4-10.2); Carbon Dioxide 24 mmol/L (22.0-30.0); Chloride 105 mmol/L (98-107); Creatinine Clearance Estimated 115 mL/min (50-200); Estimated Glomerular Filt Rate 124 ml/min (>60); GFR (African American) 150 ML/MIN (>60); Glucose 88 mg/dl (74-100); Sodium 136 mmol/L (136-145)
[2020-01-11 11:58] LABS: Uric Acid 5.3 mg/dl (2.5-6.2)
--- NOTE | 2020-01-11 12:00 | HMH.OBAPHP ---
OB - H&P: HPI Antepartum - History of Present Illness Chief complaint: hypertension History of present illness: 38 5/7 weeks with scheduled repeat CS and BTL at 39 weeks presented to office to sign consent forms and reported headache and elevated BP at home. She was evaluated in office with multiple BP in severe range 160/90 She is admitted for immediate delivery due to hypertensive complications Irregular contractions but no leakage of fluid or vaginal bleeding Normal movement - History of Present care: good care Obstetrical complications: gestational hypertension [facility] History I have reviewed the patient's past medical history: Yes Medical History: Reports:: Gastroesophageal Reflux Disease(GERD), Hypertension Denies:: Anxiety, Depression, Hyperlipidemia, Seizures *Have you ever received a pneumonia vaccine?: No *Have you received a flu vaccine this season?: No Other Medical History: Reports: Other Anesthesia experience/problems:: nac Laterality Cases: Bilateral: Tonsillectomy Other Surgeries: Yes: Cholecystectomy, Amputation: No Fractures: No - *Social History Smoking Status: Never smoker Alcohol Intake: never Substance Use Type: denies use *Occupational Status:: other *Travel in the last 8 weeks: None - Psychiatric History Expresses thoughts of harming self/others: None Pschychiatric History:: Denies:: Anxiety, Depression Family Hx:: No significant family history GUEST SPECIALIST history: No GUEST SPECIALIST history Para: 1 Review of Systems - Review of Systems Review of systems:: pertinent systems reviewed and negative unless documented below - Eyes Denies blurry vision, Denies floaters - *Gastrointestinal Denies abdominal pain - *Neurologic Reports headache(s) Meds Home Medications Medication Instructions Recorded Confirmed Type prenat.vits,joey,noc-xzyb-xdpzr 1 tab PO DAILY 06/08/19 01/11/20 History Allergies Allergy/AdvReac Type Severity Reaction Status Date / Time amoxicillin [From AUGMENTIN] Allergy Mild RASH, N/V Verified 01/03/20 08:40 clavulanic acid Allergy Mild RASH,N/V Verified 01/03/20 08:40 [From AUGMENTIN] penicillin G [PENICILLIN G] Allergy Mild RASH,N/V Verified 01/03/20 08:40 clindamycin [CLINDAMYCIN] Allergy Unknown RASH, N/V Verified 01/03/20 08:40 OB - H&P: Exam - Physical Exam Vital signs: Temp Pulse Resp BP Pulse Ox 97.8 F 101 H 18 110/57 L 97 01/12/20 23:47 01/12/20 23:47 01/12/20 23:47 01/12/20 23:47 01/12/20 23:47 - Constitutional no acute distress - Routine HEENT Exam Head: Present: normocephalic, atraumatic Eye: Absent: conjunctival icterus, scleral injection ENT: Present: mucous membranes moist - Routine Respiratory Exam Present: CTA bilaterally. Absent: respiratory distress - Routine Cardiovascular Exam Present: RRR - Routine Abdominal Exam Present: soft. Absent: tenderness, distended - Routine Extremities Exam Present: edema Comments: 1+ - Routine Skin Exam Absent: rash - Routine Neurological Exam Present: alert, oriented X3 - Routine Psychiatric Exam Present: normal affect OB - A/P Antepartum (1) 38 weeks gestation of Status: Acute (2) Gestational hypertension Status: Acute (3) Previous section Status: Acute (4) tubal ligation planned Status: Acute (5) Obesity affecting Problem details: BMI 50 Status: Acute (6) Anemia associated with acute blood loss Status: Acute - Additional Plan Additional Information:: Admission for immediate delivery via repeat CS Desires tubal ligation and consent forms signed in advance Sent to Labor and Delivery for preop labs and monitoring
[2020-01-11 12:02] LABS: D-Dimer 1.13 ug/mL (0.15-8.0)
[2020-01-11 12:08] LABS: Prothrombin Time 11.4 seconds (9.4-11.8)
[2020-01-11 12:14] LABS: Activated Partial Thrombo Time 20.6 seconds (23.6-34.0)
[2020-01-11 12:26] LABS: Fibrinogen 443 mg/dL (204-500)
[2020-01-11 12:44] LABS: Coronavirus 19 IgG Antibody Negative (Negative); Coronavirus 19 IgM Antibody Negative (Negative)
--- NOTE | 2020-01-11 13:14 | P.PN_ITS ---
[facility] Anesthesia Checklist - Patient Identification Patient Identification: Arm Band - Structural Data Admitted From: Inpatient Planned Operative Procedure/s: repeat c/s, btl Consent for Planned Operative Procedure(s) Verified: Yes Verified Documents: Surgical Consent, History and Physical - NPO Status Verified Time NPO: 00:00 - Additional verifications Anesthesia Reactions: No - Airway Assessment C-Spine Mobility Assessed: Yes TMJ Mobility Assessed: Yes Dentition: Good Dentition - Neurological Assessment Level of Consciousness: Awake, Alert - Anesthesia Plan Anesthesia Risk discussed: Yes Anesthesia Plan: Verified ASA Class: III Anesthesia Type: Spinal [facility] History I have reviewed the patient's past medical history: Yes Medical History: Reports:: Gastroesophageal Reflux Disease(GERD), Hypertension Denies:: Anxiety, Depression, Hyperlipidemia, Seizures *Have you ever received a pneumonia vaccine?: No *Have you received a flu vaccine this season?: No Other Medical History: Reports: Other Anesthesia experience/problems:: nac Laterality Cases: Bilateral: Tonsillectomy Other Surgeries: Yes: Cholecystectomy, Amputation: No Fractures: No - *Social History Smoking Status: Never smoker Alcohol Intake: never Substance Use Type: denies use *Occupational Status:: employed *Travel in the last 8 weeks: None - Psychiatric History Pschychiatric History:: Denies:: Anxiety, Depression Family Hx:: No significant family history IT SOFTWARE DEVELOPER history: No IT SOFTWARE DEVELOPER history
--- NOTE | 2020-01-11 13:15 | P.PN_ITS ---
[facility] Anesthesia Record Part I Intake, IV Amount: 2,000 Estimated blood loss (mL): 600 Urine output (mL): 400 Blood Pressure: 139/83 SaO2: 96 Pulse Rate: 82 Respiratory Rate: 16 Temperature: 100.1 F Patient is:: Drowsy, Stable Stable to PACU at:: 13:10
--- NOTE | 2020-01-11 14:02 | HMH.OPNOTE ---
Date of procedure: 01/11/20 Pre-op Diagnosis:: 1. 38 5/7 weeks gestation 2. Previous C Section 3. Gestational hypertension 4. Undesired fertility Post-op Diagnosis:: Same Procedure performed:: 1. Repeat Low Transverse Section 2. Bilateral Tubal Ligation Surgeon:: Mallory Diaz MD [employer] Practitioner(s):: Rashad Bueno MD EDUCATION PROFESSIONAL:: Seferino Vanndang Anesthesia: spinal Estimated blood loss (mL): 600 Operative findings:: vigorous liveborn female infant grossly normal uterus, fallopian tubes and ovaries Operative note:: The patient was taken to the OR and spinal was administered without difficulty. She was prepped and draped in normal sterile fashion. A pfannenstiel skin incision was made with the scalpel and carried down to the fascia. The fascia was incised in the midline and sharply dissected off the rectus muscles. The muscles were in the midline and the peritoneum was entered sharply and extended bluntly. The Reilly-O self retaining retractor was placed in the abdomen and a bladder flap was created. The uterus was incised in the lower uterine segment in a transverse fashion and extended bluntly. Amniotomy was performed and clear fluid noted. The was delivered in controlled fashion, without complication or shoulder dystocia. The was vigorous at and handed to awaiting pediatricians for evaluation after cord clamped and cut. Cord blood was collected and a cord segment was preserved. The placenta was manually extracted and noted to be intact. The uterus was repaired with 0-vicryl in a running/locked fashion. A second imbricating layer was placed for hemostasis. The fallopian tubes were doubly clamped with Filshie clips (2 clips per tube) without complication. The peritoneum was closed with 2-0 vicryl in a running fashion. The fascia was closed with #1 vicryl in a running fashion. The subcutaneous fat was closed with 2-0 vicryl in an interrupted fashion. The skin was closed with eduardo. The patient tolerated the procedure well. Sponge, lap, needle and instrument counts were correct x 2. She was taken to PACU awake and in stable condition. Condition: stable Disposition: PACU Specimens:: placenta Complications:: none
[2020-01-11 14:06] LABS: Microscopic, Urine URINE MICROSCOPIC (MICROSCOPIC)
[2020-01-11 14:15] LABS: Appearance,Urine CLEAR (Clear); Bilirubin,Urine Negative (Negative); Blood, Urine Negative (Negative); Color,Urine YELLOW (Yellow); Glucose,Urine (UA) Negative (Negative); Ketones,Urine Negative (Negative); Leukocyte Esterase,Urine 1+ (Negative); Nitrate,Urine Negative (Negative); PH,Urine 6.5 (5.0-8.5); Protein,Urine Negative (Negative); Urobilinogen,Urine 0.2 EU/dl (0.2)
[2020-01-11 14:31] LABS: Bacteria,Urine 1+ /lpf; RBC,Urine Occasional #/hpf (0-3)
[2020-01-11 14:33] LABS: Amphetamine/Metha Screen,Urine Negative ng/ml (<1000); Barbiturates Screen,Urine Negative ng/ml (<200)
[2020-01-11 14:34] LABS: Benzodiazepines Screen,Urine Negative ng/ml (<200)
[2020-01-11 14:35] LABS: Cannabinoid Screen,Urine Negative ng/ml (<50); Cocaine Screen,Urine Negative ng/ml (<300)
[2020-01-11 14:36] LABS: Methadone Screen,Urine Negative ng/ml (<300)
[2020-01-11 14:37] LABS: Opiate Screen,Urine Negative ng/ml (<300); Phencyclidine Screen,Urine Negative ng/ml (<25)
--- NOTE | 2020-01-11 19:25 | HMH.ANESII ---
[facility] Anesthesia Record Part II Discharge Time: 13:40 Destination: Obstetric PACU nurse assessment reviewed?: Yes Patient Condition:: Good Anesthesia Complications:: None Swallowing reflex intact?: Yes Cyanosis?: No Blood Pressure: 136/83 Pulse Rate: 85 Temperature: 98.0 F Mental Status: Alert & Oriented Pain level:: 0 Nausea and/or vomitting:: None Intake, IV Amount: 30
[2020-01-12] VITALS (7 sets, daily range): BP systolic 110–134; BP diastolic 57–72; PULSE 78–106; RESP 18; TEMP 36.4–36.8; O2SAT 97–99
[2020-01-12 07:16] LABS: Hematocrit 32.1 % (37.0-47.0)
[2020-01-12 07:20] LABS: Hemoglobin 10.3 g/dL (12.2-16.2)
--- NOTE | 2020-01-12 11:30 | HMH.ACPN2 ---
Internal Medicine - PN: Subj *Date: 01/12/20 *Time: 11:30 Interval history: POD #1, c section and tubal ligation Increased bleeding last night after delivery of LGA (8 # 11oz) Bleeding successfully managed with pitocin and methergine Bleeding currently light, less than menstrual period Hgb 13.1 at admission and 10.3 today Patient is asymptomatic with acute blood loss anemia No unusual complaints Tolerating regular diet, ambulating and voiding without difficulty Exam Vital signs and Labs for Last 24 Hours: Temp Pulse Resp BP Pulse Ox 98.3 F 106 H 18 129/60 99 01/12/20 08:00 01/12/20 08:00 01/12/20 08:00 01/12/20 08:00 01/12/20 08:00 Laboratory Results - last 24 hr 01/11/20 10:59: Urine Color Yellow, Urine Appearance Clear, Urine pH 6.5, Ur Specific Hooks 1.020, Urine Protein Negative, Urine Glucose (UA) Negative, Urine Ketones Negative, Urine Blood Negative, Urine Nitrate Negative, Urine Bilirubin Negative, Urine Urobilinogen 0.2, Ur Leukocyte Esterase 1+ A, Urine RBC Occasional, Urine WBC 10-20, Ur Squamous Epith Cells 3-5, Urine Bacteria 1+ 01/11/20 10:59: Urine Opiates Screen Negative, Urine Methadone Screen Negative, Ur Barbituates Screen Negative, Ur Phencyclidine Scrn Negative, Ur Amphetamines Screen Negative, U Benzodiazepines Scrn Negative, Urine Cocaine Screen Negative, U Marijuana (THC) Screen Negative 01/11/20 11:13: WBC 11.7 H, RBC 4.98, Hgb 13.1, Hct 40.7, MCV 81.7, MCH 26.3 L, MCHC 32.2, RDW 14.7, Plt Count 276, MPV 9.7, Neut % (Auto) 68.1, Lymph % (Auto) 25.5, [place] % (Auto) 6.0, Eos % (Auto) 0.1, Baso % (Auto) 0.3, Neut # (Auto) 8.0 H, Lymph # (Auto) 3.0, [place] # (Auto) 0.7, Eos # (Auto) 0.0, Baso # (Auto) 0.0 01/11/20 11:13: PT 11.4, INR 1.00, APTT 20.6 L, Fibrinogen 443 01/11/20 11:13: D-Dimer 1.13, Sodium 136, Potassium 4.0, Chloride 105, Carbon Dioxide 24, Anion Gap 11.0, BUN 7, Creatinine 0.60, Estimated Creat Clear 115, Estimated GFR 124, Est GFR ( Amer) 150, Glucose 88, Uric Acid 5.3, Calcium 9.6, AST 20, ALT 15 01/11/20 11:13: Blood Type O Positive, Antibody Screen Negative 01/11/20 11:13: SARS-CoV-2 IgG Ab (Rapid) Negative, SARS-CoV-2 IgM Ab (Rapid) Negative 01/12/20 06:37: Hgb 10.3 L D, Hct 32.1 L I & O for Last 24 hours: Intake & Output 01/09/20 01/10/20 01/11/20 01/12/20 11:59 11:59 11:59 11:59 Intake Total 2180 / 2180 Output Total 1150 / 1150 Balance 1030 / 1030 Weight 294 lb Microbiology Reports for the Last 24 Hours: Microbiology 01/11/20 10:59 Urine,Clean Catch Urine Culture - Preliminary Narrative: CONSTITUTIONAL: no acute distress HEENT: mucous membranes moist PULMONARY: breathing unlabored without audible wheezes CV: no tachycardia or visible JVD; normal LE peripheral pulses ABD: soft, ND; appropriately tender but no rebound/guarding : fundus firm at/below umbilicus SKIN: incision well approximated with no drainage, erythema or induration EXT: 1+ edema LEs NEURO: alert/oriented, no altered mental status PSYCH: appropriate mood and demeanor without anxiety/depression Assessment and Plan (1) 38 weeks gestation of Status: Acute Category: Medical Code(s): Z3A.38 - 38 weeks gestation of (2) Gestational hypertension Status: Acute Category: Medical Code(s): O13.9 - Gestational [-induced] hypertension without significant proteinuria, unspecified trimester (3) Previous section Status: Acute Category: Surgical Code(s): Z98.891 - History of uterine scar from previous surgery (4) tubal ligation planned Status: Acute Category: Medical (5) Obesity affecting Problem details: BMI 50 Status: Acute Category: Medical Code(s): O99.210 - Obesity complicating , unspecified trimester (6) Anemia associated with acute blood loss Status: Acute Category: Medical Code(s): D62 - Acute posthemorrhagic anemia - Assessment and
--- NOTE | 2020-01-13 10:46 | P.DS_ITS ---
General - General Admission date:: 01/11/20 Discharge date: 01/13/20 Hospital Course Hospital Course: Admitted at 38 5/7 for repeat CS and BTL Delivery prior to 39 wks due to gestational hypertension Uncomplicated delivery Postoperative course uneventful Tolerating regular diet Ambulating and voiding without difficulty Asymptomatic with postop anemia Discharged home on POD #2 in stable condition Follow up will be scheduled in office for staple removal Rhogam Administration: Not Indicated Objective Vital signs: Temp Pulse Resp BP Pulse Ox 97.8 F 101 H 18 110/57 L 97 01/12/20 23:47 01/12/20 23:47 01/12/20 23:47 01/12/20 23:47 01/12/20 23:47 Narrative: CONSTITUTIONAL: no acute distress HEENT: mucous membranes moist PULMONARY: breathing unlabored without audible wheezes CV: no tachycardia or visible JVD; normal LE peripheral pulses ABD: soft, ND; appropriately tender but no rebound/guarding : fundus firm at/below umbilicus SKIN: incision well approximated with no drainage, erythema or induration EXT: 1+ edema LEs NEURO: alert/oriented, no altered mental status PSYCH: appropriate mood and demeanor without anxiety/depression DS: Diagnosis - Discharge Diagnosis (1) 38 weeks gestation of Status: Acute (2) Gestational hypertension Status: Acute (3) Previous section Status: Acute (4) tubal ligation planned Status: Acute (5) Obesity affecting Status: Acute Problem details: BMI 50 (6) Anemia associated with acute blood loss Status: Acute Discharge Plan - Patient Discharge Instructions ACTIVITY: Continue current activity DIET: regular diet Additional Instructions: NO HEAVY LIFTING OR STRAINING. NO DRIVING. COME TO DR HAILE'S OFFICE FRIDAY AT 10:30 FOR STAPLE REMOVAL. Patient Instructions: Depression, Hemorrhage, DI for , DI for Pre-eclampsia, [facility] Post Discharge Instructions, Preventing the Spread of Coronavirus Discharge Instructions - Follow up Plan Follow up with: Mallory Haile MD [Staff Physician] - 01/25/20 1:45 pm Disposition: Home, Self-Senior Care Medications: Home Medications Medication Instructions Recorded Confirmed Type prenat.vits,joey,[id number] 1 tab PO DAILY 06/08/19 01/11/20 History Ibuprofen [Motrin 400mg 800 mg PO Q6HP PRN #30 tab 01/13/20 Rx tablet] Oxycodone HCl [OxyIR 5mg tablet] 5 mg PO Q6HP PRN #24 tab 01/13/20 Rx Prescriptions/Medication Reconciliation: New Acetaminophen [Acetaminophen 325mg tab] 650 mg PO Q4HP PRN tablet PRN Reason: Mild Pain Oxycodone HCl [OxyIR 5mg tablet] 5 mg PO Q6HP PRN #24 tab PRN Reason: Moderate Pain Ibuprofen [Motrin 400mg tablet] 800 mg PO Q6HP PRN #30 tab PRN Reason: Mild To Moderate Pain Continued prenat.vits,joey,[id number]-[id number]-srwud 1 tab PO DAILY - Problem Reconciliation Problems Reviewed?: Yes
== END 2020-01-13 11:35 | disposition home or self-care (01) | DRG 785 ==
PROVIDERS: Admitting Provider Obstetrics & Gynecology; PCP Nurse Practitioner Family; Visit Provider Obstetrics & Gynecology
PROC: 0UL70ZZ Occlusion of Bilateral Fallopian Tubes, Open Approach (ICD-10-PCS; CPT 59514; principal; 2020-01-11 12:00)
DX: O13.3 Gestational [pregnancy-induced] hypertension without significant proteinuria, third trimester (principal); Z3A.38 38 weeks gestation of pregnancy; Z37.0 Single live birth; O34.211 Maternal care for low transverse scar from previous cesarean delivery; N85.8 Other specified noninflammatory disorders of uterus; Z30.2 Encounter for sterilization; O90.81 Anemia of the puerperium
CPT/HCPCS: 59514; 58611; 36415; 59025; 80048; 80305; 81001; 84450; 84460; 84550; 85014; 85018; 85025; 85378; 85384; 85610; 85730; 86328; 86850; 87086; J2405; J3370

== ENCOUNTER → 2020-01-21 15:50 | Outpatient (CLI) | payer BC, SELFPAY ==
[2020-01-24 08:26] LABS: Covid-19 Nasal PCR Sendout UK DETECTED
== END ==
PROVIDERS: PCP Nurse Practitioner Family; Visit Provider Nurse Practitioner Family
DX: Z20.828 Contact with and (suspected) exposure to other viral communicable diseases (principal); U07.1 COVID-19
CPT/HCPCS: U0003

== ENCOUNTER → 2020-10-31 14:40 | Outpatient (POV) | payer BC, SELFPAY | PROVIDERS: Visit Provider Dermatology | DX: Z00.00 Encounter for general adult medical examination without abnormal findings (principal) ==

== ENCOUNTER 2022-01-29 06:57 | Emergency (ER) | payer SELFPAY ==
[2022-01-29] VITALS (9 sets, daily range): BP systolic 124–146; BP diastolic 78–101; PULSE 86–103; RESP 17–20; TEMP 36.9; O2SAT 96–100; BMI 49.4
--- NOTE | 2022-01-29 07:20 | CT_ITS ---
FINAL REPORT CLINICAL HISTORY: cough, tested positive for flu A last week, has been exposed to RSV and pneumonia. Headache in right side of head. When coughing headache radiates down right side of neck. FINDINGS: Axial images of the head were obtained without contrast. Coronal reformatted images were also obtained.This study was performed with techniques to keep radiation doses as low as reasonably achievable (ALARA). Individualized dose reduction techniques using automated exposure control or adjustment of mA and/or kV according to the patient''s size were employed. There is no evidence of intracranial hemorrhage or mass. The ventricular size is within normal limits. There is no evidence of shift of the midline structures. No abnormal extra axial fluid collection is identified. No skull abnormality is seen on the bone window images. There is opacifications of multiple sinuses. IMPRESSION: No acute intracranial abnormality. Reviewed, Interpreted and Dictated by Magrarito Langley III, MD Transcribed by Martha Ames Authenticated and [facility]
--- NOTE | 2022-01-29 07:20 | CT_ITS ---
FINAL REPORT TECHNIQUE: Axial CT images were obtained through the sinuses/facial bones. Coronal reformats were obtained. This study was performed with techniques to keep radiation doses as low as reasonably achievable (ALARA). Individualized dose reduction techniques using automated exposure control or adjustment of mA and/or kV according to the patient's size were employed. CLINICAL HISTORY: headache FINDINGS: there is opacification of multiple sinuses. There are probable fluid levels in the right sphenoid and left maxillary sinuses. Soft tissue obstructs the left ostiomeatal unit. The nasal septum is mildly deviated to the right. No fractures are identified. IMPRESSION: Diffuse sinusitis with acute right sphenoid and left maxillary sinusitis. Reviewed, Interpreted and Dictated by Margarito Langley III, MD Transcribed by Henry Naqvi Authenticated and [facility]
--- NOTE | 2022-01-29 07:24 | XR_ITS ---
FINAL REPORT CLINICAL HISTORY: cough, tested positive for flu A last week, has been exposed to RSV and pneumonia. Headache in right side of head. When coughing headache radiates down right side of neck. FINDINGS: Two views of the chest were obtained. The heart size and pulmonary vascularity are within normal limits. The mediastinum is normal. No acute pulmonary abnormality is identified. There is no pneumothorax. The bony thorax is intact. IMPRESSION: No active cardiopulmonary disease. Reviewed, Interpreted and Dictated by Margarito Langley III, MD Transcribed by Martha Ames Authenticated and . [facility]
[2022-01-29 07:43] LABS: Basophils # 0.1 K/mm3 (0-0.2); Eosinophils # 0.3 K/mm3 (0.0-0.4); Eosinophils % 2.5 % (0.1-12.0); Hematocrit 44.7 % (37.0-47.0); Hemoglobin 14.5 g/dL (12.2-16.2); Lymphocytes % 26.4 % (10-50); Mean Corpuscular HGB Conc 32.4 g/dL (31.8-35.4); Mean Corpuscular Hemoglobin 26.7 pg (27.0-31.2); Mean Corpuscular Volume 82.6 fl (81-99); Mean Platelet Volume 8.9 fl (7.4-10.4); Monocytes # 0.3 K/mm3 (0.1-1.0); Monocytes % 2.6 % (1.7-9.3); Neutrophils # 7.6 K/mm3 (1.8-7.8); Neutrophils % 67.5 % (37.0-80.0); Platelet Count 329 K/mm3 (142-424); Red Blood Count 5.42 M/mm3 (4.20-5.40); Red Cell Distribution Width 13.5 % (11.5-17.5); White Blood Count 11.3 K/mm3 (4.8-10.8)
[2022-01-29 07:52] LABS: Strep Scrn Group A (Rapid) Negative (Negative)
[2022-01-29 07:54] LABS: Alanine Aminotransferase 111 U/L (12-78); Albumin Level 4.7 g/dl (3.5-5.0); Albumin/Globulin Ratio 1.5 (1.1-1.8); Alkaline Phosphatase 79 U/L (38-126); Aspartate Amino Transferase 60 U/L (14-36); Bilirubin,Total 0.3 mg/dl (0.2-1.3); Blood Urea Nitrogen 7 mg/dl (7-17); Calcium 9.9 mg/dl (8.4-10.2); Carbon Dioxide 26 mmol/L (22.0-30.0); Chloride 106 mmol/L (98-107); Creatinine Clearance Estimated 85 mL/min (50-200); Estimated Glomerular Filt Rate 87 ml/min (>60); GFR (African American) 106 ML/MIN (>60); Globulin 3.2 g/dL (1.3-3.2); Glucose 106 mg/dl (74-100); Sodium 140 mmol/L (136-145); Total Protein,Serum 7.9 g/dl (6.3-8.2)
[2022-01-29 07:59] LABS: C-Reactive Protein 10.9 mg/L (0-4)
[2022-01-29 08:10] LABS: Erythrocyte Sedimentation Rate 16 mm/hr (0-20)
[2022-01-29 08:21] LABS: HCG Qualitative, Serum Negative (Negative)
--- NOTE | 2022-01-29 08:31 | HMH.EDGENADL ---
Discharge Plan Disposition Patient Disposition: Home, Self-Care Condition: Good Prescriptions Prescriptions: New levofloxacin 750 mg tablet 750 mg PO DAILY 10 Days Qty: 10 0RF ondansetron 4 mg tablet,disintegrating 4 mg PO Q8H PRN (Reason: nausea and vomiting) 4 Days Qty: 12 0RF fluticasone propionate [Allergy Relief (fluticasone)] 50 mcg/actuation spray,suspension 2 spray intranasal DAILY PRN (Reason: allergy symptoms) Qty: 16 0RF Rx Instructions: administer into each nostril cetirizine 10 mg tablet 10 mg PO DAILY PRN (Reason: allergy symptoms) Qty: 30 0RF Referrals Follow up/Referrals: Amy Bear APRN [Primary Care Provider] - See instructions Activity Restrictions/Add. Instructions Additional Instructions/Restrictions: You were evaluated in the emergency department today and diagnosed with a sinus infection. Please corn picker your prescriptions at the pharmacy and take them as prescribed. Take Tylenol and ibuprofen as needed for headache or pain. Follow-up with your primary care provider over the next 3 days. Return to the emergency department for any new or worsening symptoms. Clinical Impressions Clinical Impression: Sinusitis Qualifiers: Sinusitis location: frontal Chronicity: acute Recurrence: not specified as recurrent Qualified Code(s): J01.10 - Acute frontal sinusitis, unspecified Headache Qualifiers: Headache type: unspecified Headache chronicity pattern: acute headache Intractability: not intractable Qualified Code(s): R51.9 - Headache, unspecified Instructions Patient Instructions: DI for Sinusitis, DI for Sinus Headache Discharge ED Provider: Lyudmila Vasques General Adult HPI General Chief complaint: Headache Stated complaint: RT side head pain, cough, hard to swallow Time Seen by Provider: 01/29/22 07:58 Mode of Arrival: Ambulatory Source of Information: Patient Limitations: No Limitations Description of Symptoms (Recalled from ER Triage Doc. by RN): c/o coughing making her vomit, sore throat and a MUSTAFA between her eyes going over the right side of her head, seeing blurry and black dots in right eye, when she moves her eyes the pain increases. The pain started yesterday. Hx of migraines but this is the worst MUSTAFA ever and different than her other migraines. Flu last week History of Present Illness HPI narrative: This patient is a 26-year-old female with a history of migraines presenting to the emergency department for evaluation of sore throat, cough, congestion, headache, nausea, and tussive emesis. She had the flu last week, but her cough has been worsening over the last several days. she states that her cough makes her headache worse, and when she is experiencing the headache, she has floaters and black dots that she sees in her vision. She denies any vision changes otherwise, pain with extraocular movements, double vision, numbness, tingling, unilateral weakness, or other concerns. Nothing seems to make her symptoms better or worse. She states that she does have a history of exercise-induced asthma but does not use any inhalers. Related Data Previous Rx's Medication Instructions Recorded cetirizine 10 mg tablet 10 mg PO DAILY PRN allergy 01/29/22 symptoms #30 tabs fluticasone propionate 50 2 spray intranasal DAILY PRN 01/29/22 mcg/actuation nasal allergy symptoms #16 grams spray,suspension (Allergy Relief (fluticasone)) levofloxacin 750 mg tablet 750 mg PO DAILY 10 days #10 tabs 01/29/22 ondansetron 4 mg disintegrating 4 mg PO Q8H PRN nausea and 01/29/22 tablet vomiting 4 days #12 tabs Allergies Allergy/AdvReac Type Severity Reaction Status Date / Time amoxicillin [From AUGMENTIN] Allergy Mild RASH, N/V Verified 11/03/20 12:25 clavulanic acid Allergy Mild RASH,N/V Verified 11/03/20 12:25 [From AUGMENTIN] penicillin G [PENICILLIN G] Allergy Mild RASH,N/V Verified 11/03/20 12:25 clindamycin [CLINDAMYCIN] Allergy Unknown RASH, N/V Verified 11/03/20 12:25
--- NOTE | 2022-01-29 09:37 | PC.NURSE ---
Pt IV infiltrated with NS infusing at this time. Fluids stopped and IV taken out. MD morris
== END 2022-01-29 11:45 | disposition home or self-care (01) ==
PROVIDERS: Emergency Medicine; Emergency Provider Emergency Medicine; PCP Nurse Practitioner Family
DX: J01.10 Acute frontal sinusitis, unspecified (principal); J02.9 Acute pharyngitis, unspecified; H53.2 Diplopia; R53.1 Weakness; R20.2 Paresthesia of skin; R11.2 Nausea with vomiting, unspecified; R09.81 Nasal congestion; R05.9 Cough, unspecified; G43.909 Migraine, unspecified, not intractable, without status migrainosus; J45.909 Unspecified asthma, uncomplicated; Z79.51 Long term (current) use of inhaled steroids; Z79.899 Other long term (current) drug therapy; Z88.1 Allergy status to other antibiotic agents; Z88.3 Allergy status to other anti-infective agents; Z88.8 Allergy status to other drugs, medicaments and biological substances
CPT/HCPCS: 70450; 70486; 71046; 80053; 84703; 85025; 85651; 86140; 87430; 96361; 96374; 96375; 99285; J2405

== ENCOUNTER 2022-10-04 14:44 | Emergency (ER) | payer SELFPAY ==
--- NOTE | 2022-10-04 | ECG_ITS ---
APPROVED REPORT Exam: Resting ECG HR:109 bpm ECG Measurements Heart Rate 109 AXES VT 142 P 51 QRSd 85 QRS 30 QT 335 T 41 QTc 399 Conclusion SINUS TACHYCARDIA NONSPECIFIC T-WAVE ABNORMALITY ABNORMAL RHYTHM ECG UNCONFIRMED REPORT Electronically signed by : Jackson Crowley MD 10/08/2022 17:27:45
[2022-10-04 14:45] VITALS: BP 116/68; PULSE 110; RESP 18; TEMP 37.8; O2SAT 96; BMI 45.7
[2022-10-04 15:00] VITALS: BP 130/76; PULSE 117; O2SAT 98
--- NOTE | 2022-10-04 15:05 | PC.NURSE ---
PT GIVEN TYLENOL AND MOTRIN, NO NEEDS AT THIS TIME
--- NOTE | 2022-10-04 15:18 | PC.NURSE ---
DR REVELES AT BEDSIDE
--- NOTE | 2022-10-04 15:21 | CT_ITS ---
PROCEDURE INFORMATION: Exam: CTA Chest With Contrast Exam date and time: 10/04/2022 4:41 PM Age: 26 years old Clinical indication: Pain; Chest pressure; Additional info: Syncope, chest pain, covid + TECHNIQUE: Imaging protocol: Computed tomographic angiography of the chest with contrast. Exam focused on the arteries. 3D rendering (Not supervised by radiologist): MIP and/or 3D reconstructed images were created by the technologist. Radiation optimization: All CT scans at this facility use at least one of these dose optimization techniques: automated exposure control; mA and/or kV adjustment per patient size (includes targeted exams where dose is matched to clinical indication); or iterative reconstruction. Contrast material: ISOVUE; Contrast volume: 370 ml; Contrast route: INTRAVENOUS (IV); REPORTING DATA: Count of CT and Cardiac NM exams in prior 12 months: This patient has received 2 known CTs and 0 known cardiac nuclear medicine studies in the 12 months prior to the current study. COMPARISON: CR XR CHEST 2V 01/29/2022 8:49 AM FINDINGS: Pulmonary arteries: Normal. No pulmonary emboli. Aorta: Unremarkable. No aortic aneurysm. No aortic dissection. Lungs: There are multiple calcified granulomas of the left lung base. Pleural spaces: Unremarkable. No pneumothorax. No pleural effusion. Heart: Unremarkable. No cardiomegaly. No pericardial effusion. Lymph nodes: There are calcified mediastinal lymph nodes likely reflecting prior granulomatous disease. Gallbladder and bile ducts: The patient is status post cholecystectomy. The patient is status post cholecystectomy. Bones/joints: Unremarkable. No acute fracture. Soft tissues: Unremarkable. IMPRESSION: No evidence for clinically relevant pulmonary arterial filling defect, dense parenchymal consolidation, pleural effusion, or pneumothorax. No acute intrathoracic anomaly.
[2022-10-04 15:30] VITALS: BP 109/66; PULSE 110; O2SAT 95
[2022-10-04 15:33] LABS: Basophils % 0.3 % (0.1-2.0); Eosinophils % 0.5 % (0.1-12.0); Hematocrit 40.7 % (37.0-47.0); Hemoglobin 13.5 g/dL (12.2-16.2); Lymphocytes # 0.8 K/mm3 (0.7-4.5); Mean Corpuscular HGB Conc 33.2 g/dL (31.8-35.4); Mean Corpuscular Hemoglobin 27.9 pg (27.0-31.2); Mean Platelet Volume 8.9 fl (7.4-10.4); Monocytes # 0.7 K/mm3 (0.1-1.0); Monocytes % 7.7 % (1.7-9.3); Neutrophils # 7.3 K/mm3 (1.8-7.8); Neutrophils % 82.6 % (37.0-80.0); Platelet Count 230 K/mm3 (142-424); Red Blood Count 4.85 M/mm3 (4.20-5.40); Red Cell Distribution Width 13.8 % (11.5-17.5); White Blood Count 8.9 K/mm3 (4.8-10.8)
[2022-10-04 15:35] LABS: Chloride 105 mmol/L (98-107); Potassium 3.5 mmoL/L (3.5-5.1); Sodium 141 mmol/L (136-145)
[2022-10-04 15:38] LABS: Alanine Aminotransferase 24 U/L (12-78); Albumin Level 3.9 g/dl (3.5-5.0); Albumin/Globulin Ratio 1.2 (1.1-1.8); Alkaline Phosphatase 67 U/L (38-126); Anion Gap 14.5 mEq/L (5-15); Aspartate Amino Transferase 25 U/L (14-36); Bilirubin,Total 0.4 mg/dl (0.2-1.3); Blood Urea Nitrogen 7 mg/dl (7-17); Calcium 8.8 mg/dl (8.4-10.2); Carbon Dioxide 25 mmol/L (22.0-30.0); Creatinine Clearance Estimated 68 mL/min (50-200); Estimated Glomerular Filt Rate 68 ml/min (>60); GFR (African American) 82 ML/MIN (>60); Globulin 3.3 g/dL (1.3-3.2); Glucose 99 mg/dl (74-100); Total Protein,Serum 7.2 g/dl (6.3-8.2)
[2022-10-04 15:43] LABS: HCG Qualitative, Serum Negative (Negative)
[2022-10-04 15:55] LABS: Troponin I < 0.01 ng/ml (0.00-0.034)
--- NOTE | 2022-10-04 16:12 | HMH.EDGENADL ---
Discharge Plan Disposition Patient Disposition: Home, Self-Care Condition: Good Prescriptions Prescriptions: No Action levofloxacin 750 mg tablet 750 mg PO DAILY 10 Days Qty: 10 0RF ondansetron 4 mg tablet,disintegrating 4 mg PO Q8H PRN (Reason: nausea and vomiting) 4 Days Qty: 12 0RF fluticasone propionate [Allergy Relief (fluticasone)] 50 mcg/actuation spray,suspension 2 spray intranasal DAILY PRN (Reason: allergy symptoms) Qty: 16 0RF Rx Instructions: administer into each nostril cetirizine 10 mg tablet 10 mg PO DAILY PRN (Reason: allergy symptoms) Qty: 30 0RF Referrals Follow up/Referrals: Amy Bear APRN [Primary Care Provider] - See instructions Activity Restrictions/Add. Instructions Additional Instructions/Restrictions: You were evaluated in the emergency department today. Please make sure that you are staying orally hydrated. Take Tylenol and ibuprofen at home as needed for pain and fever. Follow-up with your primary care provider over the next 4 days. Return to the emergency department for new or worsening symptoms. Clinical Impressions Clinical Impression: Syncope and collapse, COVID-19 Stand Alone Forms Stand Alone Forms: Work/School Release Instructions Patient Instructions: DI for Syncope in Adults (Fainting), DI for COVID-19 (Suspected or Confirmed ) Discharge ED Provider: Lyudmila Vasques General Adult HPI General Chief complaint: Syncope Stated complaint: weakness Time Seen by Provider: 10/04/22 15:04 Mode of Arrival: EMS Limitations: No Limitations Description of Symptoms (Recalled from ER Triage Doc. by RN): PT WITH + COVID TEST TODAY. PT BROUGTH IN VIA EMS FOR POSSIBLE SYNCOPE. PT C/O COUGH, FEVER AND DIZZINESS. History of Present Illness HPI narrative: This patient is a 26-year-old female who denies significant past medical history presenting to the emergency department for evaluation with concern for syncopal episode that happened today. Patient reports that she had a positive COVID test today after symptoms for 2 days. She states that she has been feeling lightheaded. Today, she remembers feeling extremely lightheaded, her vision going out, and then she states that she woke up to bystanders telling her she passed out and was yelling for help. She states that she has otherwise had a cough, fever, and dizziness. She also is having some left-sided chest pain that is worse with deep breaths and coughing. No abdominal pain, nausea, vomiting, change in bowel movements, rashes, or swelling. No history of blood clots or clotting disorders. Related Data Previous Rx's Medication Instructions Recorded cetirizine 10 mg tablet 10 mg PO DAILY PRN allergy 01/29/22 symptoms #30 tabs fluticasone propionate 50 2 spray intranasal DAILY PRN 01/29/22 mcg/actuation nasal allergy symptoms #16 grams spray,suspension (Allergy Relief (fluticasone)) levofloxacin 750 mg tablet 750 mg PO DAILY 10 days #10 tabs 01/29/22 ondansetron 4 mg disintegrating 4 mg PO Q8H PRN nausea and 01/29/22 tablet vomiting 4 days #12 tabs Allergies Allergy/AdvReac Type Severity Reaction Status Date / Time amoxicillin [From AUGMENTIN] Allergy Mild RASH, N/V Verified 11/03/20 12:25 clavulanic acid Allergy Mild RASH,N/V Verified 11/03/20 12:25 [From AUGMENTIN] penicillin G [PENICILLIN G] Allergy Mild RASH,N/V Verified 11/03/20 12:25 clindamycin [CLINDAMYCIN] Allergy Unknown RASH, N/V Verified 11/03/20 12:25 PFSH PFS Disclaimer: The information contained in this section may have been updated after the patient was seen, as this information can be updated by other users. Social History Smoking Status: Never smoker alcohol intake: never substance use type: denies use current occupational status: other Travel in the last 8 weeks: None ROS Obtained: Yes All systems reviewed & no additional complaints except as docu
--- NOTE | 2022-10-04 16:20 | PC.NURSE ---
PT MEDICATED PER EMAR, NO NEEDS AT THIS TIME. TALKING ON PHONE
[2022-10-04 16:30] VITALS: BP 103/73; PULSE 90; O2SAT 97
--- NOTE | 2022-10-04 16:41 | PC.NURSE ---
PT TO CT
--- NOTE | 2022-10-04 16:41 | PC.NURSE ---
PT MEDICATED PER EMAR, TALKING ON PHONE, NO NEEDS AT THIS TIME
--- NOTE | 2022-10-04 17:24 | PC.NURSE ---
rounded on pt, pt sitting up in bed, notified pt we are waiting on ct results. Pt states no needs at this time, call button in reach
--- NOTE | 2022-10-04 17:44 | PC.NURSE ---
DR REVELES AT BEDSIDE TO UPDATE PT
[2022-10-04 18:18] VITALS: BP 113/80; PULSE 80; RESP 19; TEMP 36.8; O2SAT 98
== END 2022-10-04 18:21 | disposition home or self-care (01) ==
PROVIDERS: Emergency Provider Emergency Medicine; PCP Nurse Practitioner Family
DX: U07.1 COVID-19 (principal); R07.9 Chest pain, unspecified; R55 Syncope and collapse; R50.9 Fever, unspecified; R00.0 Tachycardia, unspecified
CPT/HCPCS: 71275; 80053; 84484; 84703; 85025; 93005; 96360; 99284; Q9967